=== PATIENT | female | born 1975 | race Caucasian/White ===

== ENCOUNTER 2016-09-24 20:08 | Emergency (ER) | payer OTHER ==
[~2016-09-24] VITALS: Ht 152.4 cm; Wt 59.0 kg
[~2016-09-24 20:08] MED LIST: HYDR-3326 PO; INSU100V28 SQ; INSU3INS6 SQ; PANT40TA2 PO
[2016-09-24] MEDS ORDERED: ONDANSETRON 4 MG/2 ML VIAL IV ONE (21:00)
[2016-09-24] MEDS ORDERED: MORPHINE SULFATE 2 MG/1 ML DISP.SYRIN IV ONE (21:00)
[2016-09-24] MEDS ORDERED: IV NORMAL SALINE 1000 ML BAG IV ONE ×2 (21:00→21:15)
[2016-09-24 21:09] LABS: *BILIRUBIN,URIN NEGATIVE (NEGATIVE); *BLOOD, URINE 2+ (NEGATIVE); *CLARITY,URINE CLEAR (CLEAR); *COLOR,URINE YELLOW (YELLOW); *KETONES,URINE NEGATIVE (NEGATIVE); *PROTEIN,URINE NEGATIVE (NEGATIVE); *UROBILINOGEN,URINE 0.2 E.U./dl (NORMAL); LEUKOCYTE ESTERASE ,URINE NEGATIVE (NEGATIVE); NITRITE, URINE NEGATIVE (NEGATIVE); PH,URINE 5.5 (5.0-8.0)
[2016-09-24 21:11] LABS: UGLUCOSE 2+ (NEGATIVE)
[2016-09-24 21:12] LABS: *URINE HCG, QUAL NEGATIVE (NEGATIVE)
[2016-09-24 21:18] LABS: BACTERIA,URINE FEW /HPF (NONE SEEN); SQUAMOUS EPITHELIAL CELL,UR FEW /HPF (NONE SEEN); WBC,URINE NONE SEEN /HPF (0-3)
[2016-09-24 21:52] LABS: BASOPHILS % (AUTO) 1.1 % (0.0-2.0); EOSINOPHILS % (AUTO) 1.1 % (0.0-7.0); HEMATOCRIT 42.8 % (37.0-47.0); HEMOGLOBIN 14.2 g/dL (12.0-16.0); LYMPHOCYTES # (AUTO) 1.5 K/uL (0.8-4.8); LYMPHOCYTES % (AUTO) 40.8 % (20.5-51.5); MEAN CORPUSCULAR HEMOGLOBIN 28.5 uug (27.0-31.0); MEAN CORPUSCULAR HGB CONC 33 g/dL (32.0-37.0); MEAN CORPUSCULAR VOLUME 85.9 fL (81.0-99.0); MONOCYTES # (AUTO) 0.1 K/uL (0.1-1.30); MONOCYTES % (AUTO) 4.1 % (0.0-11.0); NEUTROPHILS % (AUTO) 52.9 % (38.5-71.5); PLATELET COUNT (AUTO) 131 K/uL (150-450); RED BLOOD CELL COUNT(AUTO) 4.98 MIL/uL (4.20-5.40); WHITE BLOOD COUNT (AUTO) 3.6 K/uL (4.0-11.2)
[2016-09-24 21:55] LABS: CALCIUM 8.6 mg/dL (8.5-10.1); CREATININE 0.7 mg/dL (0.6-1.3); POTASSIUM 3.8 mmol/L (3.5-5.1)
[2016-09-24] MEDS ORDERED: MORPHINE SULFATE 2 MG/1 ML DISP.SYRIN ONE (21:59)
[2016-09-24] MEDS ORDERED: ONDANSETRON 4 MG/2 ML VIAL ONE (21:59)
[2016-09-24] MEDS ORDERED: diphenhydrAMINE 50 MG/1 ML VIAL IV ONE (22:00)
[2016-09-24 22:01] LABS: ALBUMIN 3.6 g/dL (3.4-5.0); BILIRUBIN,DIRECT 0.2 mg/dL (0.0-0.2); BILIRUBIN,TOTAL 0.5 mg/dL (0.2-1.0)
[2016-09-24] MEDS ORDERED: diphenhydrAMINE 50 MG/1 ML VIAL ONE (22:10)
[2016-09-24] MEDS ORDERED: INSULIN REGULAR, HUMAN 1,000 UNITS/10 ML VIAL SUBCUT ONE (22:15)
[2016-09-24 22:25] LABS: LYMPHOCYTES % (MANUAL) 38 % (20-40); MONOCYTES % (MANUAL) 5 % (2-10); NEUTROPHILS % (MANUAL) 56 % (42-75); REACTIVE LYMPHOCYTES 1 % (0-0)
[2016-09-24 22:26] LABS: ANISOCYTOSIS 1+; PLATELET ESTIMATE DECREASED
--- NOTE | 2016-09-24 22:39 | NUR ---
PATIENT WENT DOWN FOR CT SCAN.
[2016-09-24] MEDS ORDERED: INSULIN REGULAR, HUMAN 300 UNIT/3 ML VIAL ONE (22:50)
--- NOTE | 2016-09-24 22:58 | NUR ---
PATIENT IS BACK FORM CT SCAN
[2016-09-24] MEDS ORDERED: HYDROMORPHONE 1 MG/1 ML DISP.SYRIN IV ONE (23:30)
[2016-09-24] MEDS ORDERED: HYDROMORPHONE 1 MG/1 ML DISP.SYRIN ONE (23:49)
--- NOTE | 2016-09-25 00:25 | NUR ---
Blood sugar 233. is aware.
--- NOTE | 2016-09-25 00:48 | NUR ---
Patient discharged to home in stable conditon. Written and verbal after care instructions given. Patient verbalizes understanding of instructions.
[2016-09-25 00:52] VITALS: BP 115/75
== END 2016-09-25 00:48 | disposition home or self-care (01) ==
LOC: ER 20:08
DX: N23 Unspecified renal colic (principal); D25.9 Leiomyoma of uterus, unspecified; E10.65 Type 1 diabetes mellitus with hyperglycemia; D69.6 Thrombocytopenia, unspecified; R74.0 Nonspecific elevation of levels of transaminase and lactic acid dehydrogenase [LDH]; K21.9 Gastro-esophageal reflux disease without esophagitis; G43.909 Migraine, unspecified, not intractable, without status migrainosus; Z79.4 Long term (current) use of insulin; Z88.6 Allergy status to analgesic agent; Z88.8 Allergy status to other drugs, medicaments and biological substances
CPT/HCPCS: 36415; 76856; 83690; 84703; 85025; A4663; J1170; J1200; J1815; J2270; J2405; J7030

== ENCOUNTER 2016-11-15 21:56 | Emergency (ER) | payer OTHER ==
[~2016-11-15] VITALS: Ht 165.1 cm; Wt 59.0 kg
[~2016-11-15 21:56] MED LIST changes: -HYDR-3326 PO; -INSU100V28 SQ; -PANT40TA2 PO
[2016-11-15] MEDS ORDERED: FAMOTIDINE. 20 MG/2 ML VIAL IV ONE ×2 (22:15→22:31)
[2016-11-15] MEDS ORDERED: MORPHINE SULFATE 2 MG/1 ML DISP.SYRIN IV ONE (22:15)
[2016-11-15] MEDS ORDERED: ONDANSETRON 4 MG/2 ML VIAL IV ONE (22:15)
[2016-11-15] MEDS ORDERED: diphenhydrAMINE 50 MG/1 ML VIAL IV ONE (22:15)
[2016-11-15] MEDS ORDERED: IV NORMAL SALINE 1000 ML BAG IV ONE (22:15)
[2016-11-15] MEDS ORDERED: ONDANSETRON 4 MG/2 ML VIAL ONE (22:31)
[2016-11-15] MEDS ORDERED: MORPHINE SULFATE 2 MG/1 ML DISP.SYRIN ONE (22:31)
[2016-11-15] MEDS ORDERED: diphenhydrAMINE 50 MG/1 ML VIAL ONE (22:31)
[2016-11-15 22:33] LABS: *BILIRUBIN,URIN NEGATIVE (NEGATIVE); *BLOOD, URINE NEGATIVE (NEGATIVE); *CLARITY,URINE CLEAR (CLEAR); *COLOR,URINE YELLOW (YELLOW); *KETONES,URINE NEGATIVE (NEGATIVE); *PROTEIN,URINE NEGATIVE (NEGATIVE); *UROBILINOGEN,URINE 0.2 E.U./dl (NORMAL); LEUKOCYTE ESTERASE ,URINE NEGATIVE (NEGATIVE); NITRITE, URINE NEGATIVE (NEGATIVE)
[2016-11-15 22:36] LABS: BASOPHILS % (AUTO) 0.4 % (0.0-2.0); EOSINOPHILS % (AUTO) 1.2 % (0.0-7.0); HEMATOCRIT 42.5 % (37-47); LYMPHOCYTES # (AUTO) 1.4 K/UL (0.8-4.8); LYMPHOCYTES % (AUTO) 39.9 % (20.5-51.5); MEAN CORPUSCULAR HEMOGLOBIN 28.6 UUG (27.0-31.0); MEAN CORPUSCULAR HGB CONC 33 g/dL (32.0-37.0); MEAN CORPUSCULAR VOLUME 86.8 FL (81.0-99.0); MONOCYTES # (AUTO) 0.2 K/UL (0.1-1.30); MONOCYTES % (AUTO) 4.7 % (0.0-11.0); NEUTROPHILS # (AUTO) 1.9 K/UL (1.8-8.9); NEUTROPHILS % (AUTO) 53.8 % (38.5-71.5); PLATELET COUNT (AUTO) 144 K/UL (150-450); RED CELL DISTRIBUTION WIDTH 12.2 % (11.5-14.5); WHITE BLOOD COUNT (AUTO) 3.5 K/UL (4.0-11.2)
[2016-11-15 22:39] LABS: *URINE HCG, QUAL NEGATIVE (NEGATIVE)
[2016-11-15 22:39] LABS: CALCIUM 8.7 mg/dL (8.5-10.1); CREATININE 0.7 mg/dL (0.6-1.3)
[2016-11-15 22:43] LABS: UGLUCOSE 2+ (NEGATIVE)
[2016-11-15 22:47] LABS: SQUAMOUS EPITHELIAL CELL,UR FEW /HPF (NONE SEEN); WBC,URINE 0-3 /HPF (0-3)
[2016-11-15 22:54] LABS: BILIRUBIN,DIRECT 0.1 mg/dL (0.0-0.2); BILIRUBIN,TOTAL 0.4 mg/dL (0.1-1.0)
[2016-11-15 22:55] LABS: ALBUMIN 3.5 g/dL (3.4-5.0); TOTAL PROTEIN, SERUM 7.1 g/dL (6.4-8.2)
[2016-11-15] MEDS ORDERED: INSULIN REGULAR, HUMAN 1,000 UNITS/10 ML VIAL IV ONE (23:15)
[2016-11-15] MEDS ORDERED: INSULIN REGULAR, HUMAN 300 UNIT/3 ML VIAL ONE (23:21)
--- NOTE | 2016-11-15 23:30 | NUR ---
Pt to CT, NAD noted.
[2016-11-16] MEDS ORDERED: MORPHINE SULFATE 2 MG/1 ML DISP.SYRIN IV ONE (01:30)
--- NOTE | 2016-11-16 01:30 | NUR ---
Best mas in ED - 11/16/16 at 0218 by KAPIL I+O cath placed with no urine draine noted, pt voided sucessfully x 2 in restroom prior to f/c insertion. Dr Clay notified.
--- NOTE | 2016-11-16 01:30 | NUR ---
I+O cath placed with no urine output noted, pt voided sucessfully x 2 in restroom prior to insertion. Dr Clay notified.
[2016-11-16] MEDS ORDERED: MORPHINE SULFATE 2 MG/1 ML DISP.SYRIN ONE (01:33)
--- NOTE | 2016-11-16 01:53 | NUR ---
Radiology notified for US.
--- NOTE | 2016-11-16 02:10 | NUR ---
Pt resting in gurney with eyes closed and no s/s of acute distress noted, u/s pending.
--- NOTE | 2016-11-16 02:40 | NUR ---
U/S in progress at bedside.
--- NOTE | 2016-11-16 03:43 | NUR ---
IV removed. Catheter intact and site benign. Pressure and 4x4 gauze applied to site. No bleeding noted.
--- NOTE | 2016-11-16 03:44 | NUR ---
Patient discharged to home in stable conditon with family. Written and verbal after care instructions given. Patient verbalizes understanding of instructions. Stressed follow up with pmd or return to ER for worsening s/s.
== END 2016-11-16 03:45 | disposition home or self-care (01) ==
LOC: ER 21:59
DX: R10.9 Unspecified abdominal pain (principal); K21.9 Gastro-esophageal reflux disease without esophagitis; G43.909 Migraine, unspecified, not intractable, without status migrainosus; Z88.6 Allergy status to analgesic agent; Z88.8 Allergy status to other drugs, medicaments and biological substances
CPT/HCPCS: 36415; 51702; 74176; 76856; 80048; 80076; 81001; 82962; 84703; 85025; 96361; 96374; 96375; 96376; 99285; A4663; J1200; J1815; J2270 ×2; J2405; J3490; J7030

== ENCOUNTER 2016-11-22 22:01 | Emergency (ER) | payer OTHER ==
[~2016-11-22] VITALS: Ht 157.5 cm; Wt 61.2 kg
--- NOTE | 2016-11-22 22:28 | NUR ---
PT SEEN HERE LAST WEEK FOR THE SAME THING.PT STATES PAIN IS WORSE NOW.HAS APPT THIS COMING WEEK WITH DR. BARTLETT C/O FLANK PAIN. NO RESP DISTRESS NOTED OR REPORTED UPON ASSESSMENT... MD AT BEDSIDE...
[2016-11-22] MEDS ORDERED: ONDANSETRON 4 MG/2 ML VIAL IV ONE (23:00)
[2016-11-22] MEDS ORDERED: HYDROMORPHONE 1 MG/1 ML DISP.SYRIN IV ONE (23:00)
--- NOTE | 2016-11-22 23:03 | NUR ---
Urine Specimen collected, sent to Laboratory.
[2016-11-22 23:05] LABS: BASOPHILS % (AUTO) 0.5 % (0.0-2.0); EOSINOPHILS % (AUTO) 1.4 % (0.0-7.0); HEMATOCRIT 40.6 % (37-47); HEMOGLOBIN 13.7 G/DL (12.0-16.0); LYMPHOCYTES # (AUTO) 1.4 K/UL (0.8-4.8); LYMPHOCYTES % (AUTO) 42.6 % (20.5-51.5); MEAN CORPUSCULAR HEMOGLOBIN 28.9 UUG (27.0-31.0); MEAN CORPUSCULAR HGB CONC 34 g/dL (32.0-37.0); MEAN CORPUSCULAR VOLUME 85.8 FL (81.0-99.0); MONOCYTES # (AUTO) 0.2 K/UL (0.1-1.30); MONOCYTES % (AUTO) 5.2 % (0.0-11.0); NEUTROPHILS # (AUTO) 1.7 K/UL (1.8-8.9); NEUTROPHILS % (AUTO) 50.3 % (38.5-71.5); PLATELET COUNT (AUTO) 134 K/UL (150-450); RED BLOOD CELL COUNT(AUTO) 4.73 MIL/UL (4.2-5.4); WHITE BLOOD COUNT (AUTO) 3.3 K/UL (4.0-11.2)
[2016-11-22 23:06] LABS: *BILIRUBIN,URIN NEGATIVE (NEGATIVE); *BLOOD, URINE 2+ (NEGATIVE); *COLOR,URINE YELLOW (YELLOW); *KETONES,URINE NEGATIVE (NEGATIVE); *PROTEIN,URINE NEGATIVE (NEGATIVE); *UROBILINOGEN,URINE 0.2 E.U./dl (NORMAL); LEUKOCYTE ESTERASE ,URINE NEGATIVE (NEGATIVE); NITRITE, URINE NEGATIVE (NEGATIVE)
[2016-11-22 23:08] LABS: *URINE HCG, QUAL NEGATIVE (NEGATIVE)
[2016-11-22] MEDS ORDERED: ONDANSETRON 4 MG/2 ML VIAL ONE (23:13)
[2016-11-22] MEDS ORDERED: HYDROMORPHONE 1 MG/1 ML DISP.SYRIN ONE (23:13)
[2016-11-22 23:15] LABS: *CLARITY,URINE HAZY (CLEAR); UGLUCOSE 2+ (NEGATIVE)
[2016-11-22] MEDS ORDERED: diphenhydrAMINE 50 MG/1 ML VIAL IV ONE (23:15)
[2016-11-22 23:21] LABS: BACTERIA,URINE FEW /HPF (NONE SEEN); SQUAMOUS EPITHELIAL CELL,UR MODERATE /HPF (NONE SEEN)
[2016-11-22 23:24] LABS: BILIRUBIN,DIRECT 0.1 mg/dL (0.0-0.2); BILIRUBIN,TOTAL 0.3 mg/dL (0.2-1.0); CREATININE 0.7 mg/dL (0.6-1.3); POTASSIUM 3.9 mmol/L (3.5-5.1); TOTAL PROTEIN, SERUM 7.3 g/dL (6.4-8.2)
[2016-11-22] MEDS ORDERED: diphenhydrAMINE 50 MG/1 ML VIAL ONE (23:24)
[2016-11-22] MEDS ORDERED: INSULIN REGULAR, HUMAN 1,000 UNITS/10 ML VIAL IV ONE (23:30)
[2016-11-22] MEDS ORDERED: IV NORMAL SALINE 1000 ML BAG IV ONE (23:30)
[2016-11-22] MEDS ORDERED: INSULIN REGULAR, HUMAN 300 UNIT/3 ML VIAL ONE (23:42)
--- NOTE | 2016-11-23 01:20 | NUR ---
Patient discharged to home in stable conditon. Written and verbal after care instructions given. Patient verbalizes understanding of instructions. pt walked out of ER unassisted with belongings and at side...
[2016-11-23 01:21] VITALS: BP 129/93
== END 2016-11-23 01:59 | disposition home or self-care (01) ==
LOC: ER 22:04
DX: D25.9 Leiomyoma of uterus, unspecified (principal); R10.2 Pelvic and perineal pain; R74.0 Nonspecific elevation of levels of transaminase and lactic acid dehydrogenase [LDH]; E10.65 Type 1 diabetes mellitus with hyperglycemia; G43.909 Migraine, unspecified, not intractable, without status migrainosus; K21.9 Gastro-esophageal reflux disease without esophagitis; Z79.4 Long term (current) use of insulin; Z88.6 Allergy status to analgesic agent; Z88.8 Allergy status to other drugs, medicaments and biological substances
CPT/HCPCS: 36415; 76856; 83690; 84703; 85025; 85730; A4663; J1170; J1200; J1815; J2405

== ENCOUNTER 2017-03-29 21:26 | Emergency (ER) | payer OTHER ==
[~2017-03-29] VITALS: Ht 152.4 cm; Wt 63.5 kg
--- NOTE | 2017-03-29 22:05 | NUR ---
CHECKED BS 534
[2017-03-29 22:31] LABS: *BILIRUBIN,URIN NEGATIVE (NEGATIVE); *BLOOD, URINE 2+ (NEGATIVE); *CLARITY,URINE CLEAR (CLEAR); *COLOR,URINE YELLOW (YELLOW); *KETONES,URINE NEGATIVE (NEGATIVE); *PROTEIN,URINE NEGATIVE (NEGATIVE); *UROBILINOGEN,URINE 0.2 E.U./dl (NORMAL); LEUKOCYTE ESTERASE ,URINE NEGATIVE (NEGATIVE); NITRITE, URINE NEGATIVE (NEGATIVE); UGLUCOSE 2+ (NEGATIVE)
[2017-03-29 22:37] LABS: BACTERIA,URINE NONE SEEN /HPF (NONE SEEN); SQUAMOUS EPITHELIAL CELL,UR FEW /HPF (NONE SEEN); WBC,URINE 0-3 /HPF (0-3)
[2017-03-29 22:46] LABS: BASOPHILS % (AUTO) 0.6 % (0.0-2.0); EOSINOPHILS % (AUTO) 1.1 % (0.0-7.0); HEMATOCRIT 47.9 % (37-47); HEMOGLOBIN 15.8 G/DL (12.0-16.0); LYMPHOCYTES # (AUTO) 1.8 K/UL (0.8-4.8); LYMPHOCYTES % (AUTO) 42.1 % (20.5-51.5); MEAN CORPUSCULAR HEMOGLOBIN 28.8 UUG (27.0-31.0); MEAN CORPUSCULAR HGB CONC 33 g/dL (32.0-37.0); MEAN CORPUSCULAR VOLUME 86.9 FL (81.0-99.0); MONOCYTES # (AUTO) 0.1 K/UL (0.1-1.30); MONOCYTES % (AUTO) 3.4 % (0.0-11.0); NEUTROPHILS # (AUTO) 2.4 K/UL (1.8-8.9); NEUTROPHILS % (AUTO) 52.8 % (38.5-71.5); PLATELET COUNT (AUTO) 133 K/UL (150-450); RED BLOOD CELL COUNT(AUTO) 5.51 MIL/UL (4.2-5.4); WHITE BLOOD COUNT (AUTO) 4.3 K/UL (4.0-11.2)
[2017-03-29 23:14] LABS: BILIRUBIN,DIRECT 0.2 mg/dL (0.0-0.2); BILIRUBIN,TOTAL 0.7 mg/dL (0.2-1.0); CREATININE 0.8 mg/dL (0.6-1.3); TOTAL PROTEIN, SERUM 7.9 g/dL (6.4-8.2)
--- NOTE | 2017-03-30 01:07 | NUR ---
Patient discharged to home in stable conditon. Written and verbal after care instructions given. Patient verbalizes understanding of instructions.
[2017-03-30 01:12] VITALS: BP 112/83
== END 2017-03-30 01:13 | disposition home or self-care (01) ==
LOC: ER 21:31
DX: E11.65 Type 2 diabetes mellitus with hyperglycemia (principal); R19.7 Diarrhea, unspecified; R74.0 Nonspecific elevation of levels of transaminase and lactic acid dehydrogenase [LDH]; R51 Headache; K21.9 Gastro-esophageal reflux disease without esophagitis; Z79.4 Long term (current) use of insulin; Z87.442 Personal history of urinary calculi
CPT/HCPCS: 36415; 76700; 83690; 84703; 85025; 93005; A4663; J1170; J1200; J1815; J2405; J7030

== ENCOUNTER 2017-10-23 13:00 | Inpatient (IN) | payer OTHER ==
[~2017-10-23] VITALS: Ht 152.4 cm; Wt 56.7 kg
[2017-10-23] MEDS ORDERED: INSU100C SQ (13:07)
[2017-10-23] MEDS ORDERED: ONDANSETRON 4 MG/2 ML VIAL IV ONE (13:15)
[2017-10-23] MEDS ORDERED: IV NORMAL SALINE 1000 ML BAG IV ONE (13:15)
[2017-10-23] MEDS ORDERED: ONDANSETRON 4 MG/2 ML VIAL ONE (13:16)
[2017-10-23 13:52] LABS: BASOPHILS % (AUTO) 0.6 % (0.0-2.0); EOSINOPHILS % (AUTO) 0.5 % (0.0-7.0); HEMATOCRIT 44.7 % (31.2-41.9); HEMOGLOBIN 15.6 g/dL (10.9-14.3); LYMPHOCYTES # (AUTO) 1.4 K/uL (20.0-40.0); LYMPHOCYTES % (AUTO) 26.1 % (20.5-51.5); MEAN CORPUSCULAR HEMOGLOBIN 30.4 uug (24.7-32.8); MEAN CORPUSCULAR HGB CONC 35 g/dL (32.3-35.6); MEAN CORPUSCULAR VOLUME 87.1 fL (75.5-95.3); MONOCYTES # (AUTO) 0.1 K/uL (2.0-10.0); MONOCYTES % (AUTO) 2.7 % (0.0-11.0); NEUTROPHILS # (AUTO) 3.7 K/uL (1.8-8.9); NEUTROPHILS % (AUTO) 70.1 % (38.5-71.5); PLATELET COUNT (AUTO) 145 K/uL (179-408); RED BLOOD CELL COUNT(AUTO) 5.13 MIL/uL (3.63-4.92); WHITE BLOOD COUNT (AUTO) 5.2 K/uL (3.8-11.8)
[2017-10-23 13:53] LABS: *URINE HCG, QUAL NEGATIVE (NEGATIVE)
[2017-10-23 13:59] LABS: CREATININE 0.9 mg/dL (0.6-1.3); POTASSIUM 4.7 mmol/L (3.5-5.1)
[2017-10-23] MEDS ORDERED: MORPHINE SULFATE 2 MG/1 ML DISP.SYRIN IV ONE (14:00)
[2017-10-23] MEDS ORDERED: MORPHINE SULFATE 4 MG/1 ML DISP.SYRIN ONE (14:11)
[2017-10-23] MEDS ORDERED: INSULIN REGULAR, HUMAN 1,000 UNITS/10 ML VIAL SUBCUT ONE (14:45)
[2017-10-23] MEDS ORDERED: INSULIN REGULAR, HUMAN 300 UNIT/3 ML VIAL ONE (15:08)
[2017-10-23 17:40] VITALS: BP 126/86
[2017-10-23] MEDS ORDERED: ONDANSETRON 4 MG/2 ML VIAL IV PRN (19:00)
[2017-10-23] MEDS ORDERED: HYDROMORPHONE 1 MG/1 ML DISP.SYRIN IV PRN (19:00)
[2017-10-23] MEDS ORDERED: DEXTROSE 50% 50 ML DISP.SYRIN IV PRN (19:00)
[2017-10-23] MEDS: HYDROMORPHONE 2 MG/1 ML DISP.SYRIN IV PRN (19:43)
[2017-10-23] MEDS ORDERED: diphenhydrAMINE 50 MG/1 ML VIAL IV ONE (19:45)
[2017-10-23] MEDS: IV NS 1000 ML 1,000 ML IV PRN (20:18)
[2017-10-23] MEDS: BLOOD SUGAR DIAGNOSTIC 1 EACH STRIP VI SCH ×2 (20:26→23:09)
[2017-10-23] MEDS: INSULIN GLARGINE,HUM 300 UNITS/3 ML CARTRIDGE SQ SCH (20:29)
[2017-10-23] MEDS: ENOXAPARIN SODIUM 40 MG/0.4 ML DISP.SYRIN SQ SCH (20:30)
[2017-10-23] MEDS: INSULIN REGULAR, HUMAN 300 UNIT/3 ML VIAL SQ PRN (20:30)
[2017-10-23 20:41] VITALS: BP 117/82
[2017-10-23] MEDS: ZOLPIDEM 5 MG TABLET PO PRN (23:07)
[2017-10-24] MEDS: HYDROMORPHONE 2 MG/1 ML DISP.SYRIN IV PRN ×5 (04:12→22:32)
[2017-10-24] MEDS: IV NS 1000 ML 1,000 ML IV PRN ×2 (04:14→18:39)
[2017-10-24] MEDS: BLOOD SUGAR DIAGNOSTIC 1 EACH STRIP VI SCH ×6 (04:17→23:58)
[2017-10-24] MEDS: INSULIN REGULAR, HUMAN 300 UNIT/3 ML VIAL SQ PRN ×5 (04:18→23:59)
[2017-10-24 05:18] LABS: *BILIRUBIN,URIN NEGATIVE (NEGATIVE); *BLOOD, URINE NEGATIVE (NEGATIVE); *CLARITY,URINE SLIGHTLY CLOUDY (CLEAR); *COLOR,URINE YELLOW (YELLOW); *KETONES,URINE NEGATIVE (NEGATIVE); *PROTEIN,URINE NEGATIVE (NEGATIVE); LEUKOCYTE ESTERASE ,URINE 1+ (NEGATIVE); NITRITE, URINE NEGATIVE (NEGATIVE); PH,URINE 6.5 (5.0-8.0)
[2017-10-24 05:20] LABS: UGLUCOSE 1+ (NEGATIVE)
[2017-10-24 05:26] VITALS: BP 145/91
[2017-10-24 05:31] LABS: WBC,URINE 20-50 /HPF (0-3)
[2017-10-24 05:32] LABS: BACTERIA,URINE NONE SEEN /HPF (NONE SEEN); SQUAMOUS EPITHELIAL CELL,UR FEW /HPF (NONE SEEN)
[2017-10-24 06:11] LABS: BASOPHILS % (AUTO) 0.4 % (0.0-2.0); EOSINOPHILS % (AUTO) 1.3 % (0.0-7.0); HEMATOCRIT 39.5 % (31.2-41.9); HEMOGLOBIN 13.6 g/dL (10.9-14.3); LYMPHOCYTES # (AUTO) 1.7 K/uL (20.0-40.0); LYMPHOCYTES % (AUTO) 49.8 % (20.5-51.5); MEAN CORPUSCULAR HEMOGLOBIN 30.4 uug (24.7-32.8); MEAN CORPUSCULAR HGB CONC 35 g/dL (32.3-35.6); MONOCYTES # (AUTO) 0.1 K/uL (2.0-10.0); MONOCYTES % (AUTO) 4.3 % (0.0-11.0); NEUTROPHILS # (AUTO) 1.5 K/uL (1.8-8.9); NEUTROPHILS % (AUTO) 44.2 % (38.5-71.5); PLATELET COUNT (AUTO) 131 K/uL (179-408); RED BLOOD CELL COUNT(AUTO) 4.49 MIL/uL (3.63-4.92); WHITE BLOOD COUNT (AUTO) 3.4 K/uL (3.8-11.8)
[2017-10-24 06:27] LABS: BILIRUBIN,TOTAL 0.5 mg/dL (0.2-1.0); CREATININE 0.7 mg/dL (0.6-1.3); MAGNESIUM 1.6 mg/dL (1.8-2.4); POTASSIUM 3.8 mmol/L (3.5-5.1); TOTAL PROTEIN, SERUM 6.2 g/dL (6.4-8.2)
[2017-10-24 06:36] LABS: THYROID STIMULATING HORMONE 3.803 mIU/mL (0.358-3.740)
[2017-10-24] MEDS: diphenhydrAMINE 50 MG/1 ML VIAL IV PRN ×4 (07:54→22:31)
[2017-10-24 11:40] VITALS: BP 114/78
[2017-10-24] MEDS: MAGNESIUM SULFATE/D5W 100 ML IV SCH ×2 (12:25→14:22)
[2017-10-24 15:44] VITALS: BP 158/101
[2017-10-24] MEDS: ACETAMINOPHEN 325 MG TABLET PO PRN (17:10)
[2017-10-24 20:00] VITALS: BP 121/85
[2017-10-24] MEDS: INSULIN GLARGINE,HUM 300 UNITS/3 ML CARTRIDGE SQ SCH (20:22)
[2017-10-24] MEDS: ENOXAPARIN SODIUM 40 MG/0.4 ML DISP.SYRIN SQ SCH (20:23)
[2017-10-24] MEDS: ZOLPIDEM 5 MG TABLET PO PRN (23:38)
[2017-10-25] MEDS: IV NS 1000 ML 1,000 ML IV PRN (02:41)
[2017-10-25] MEDS: diphenhydrAMINE 50 MG/1 ML VIAL IV PRN ×3 (02:48→11:27)
[2017-10-25] MEDS: HYDROMORPHONE 2 MG/1 ML DISP.SYRIN IV PRN ×2 (02:48→06:38)
[2017-10-25] MEDS: BLOOD SUGAR DIAGNOSTIC 1 EACH STRIP VI SCH ×3 (04:27→12:17)
[2017-10-25] MEDS: INSULIN REGULAR, HUMAN 300 UNIT/3 ML VIAL SQ PRN ×2 (04:28→08:07)
[2017-10-25 04:52] VITALS: BP 141/96
[2017-10-25] MEDS: ACETAMINOPHEN 325 MG TABLET PO PRN (06:07)
[2017-10-25 06:31] LABS: CREATININE 0.8 mg/dL (0.6-1.3); MAGNESIUM 1.7 mg/dL (1.8-2.4)
[2017-10-25 07:23] LABS: BASOPHILS % (AUTO) 0.6 % (0.0-2.0); EOSINOPHILS # (AUTO) 0.1 K/uL (0.0-0.7); EOSINOPHILS % (AUTO) 1.8 % (0.0-7.0); HEMATOCRIT 38.7 % (31.2-41.9); HEMOGLOBIN 13.5 g/dL (10.9-14.3); LYMPHOCYTES # (AUTO) 1.3 K/uL (20.0-40.0); LYMPHOCYTES % (AUTO) 44.1 % (20.5-51.5); MEAN CORPUSCULAR HEMOGLOBIN 30.6 uug (24.7-32.8); MEAN CORPUSCULAR HGB CONC 35 g/dL (32.3-35.6); MEAN CORPUSCULAR VOLUME 87.6 fL (75.5-95.3); MONOCYTES # (AUTO) 0.1 K/uL (2.0-10.0); MONOCYTES % (AUTO) 4.2 % (0.0-11.0); NEUTROPHILS # (AUTO) 1.4 K/uL (1.8-8.9); NEUTROPHILS % (AUTO) 49.3 % (38.5-71.5); PLATELET COUNT (AUTO) 135 K/uL (179-408); RED BLOOD CELL COUNT(AUTO) 4.41 MIL/uL (3.63-4.92); WHITE BLOOD COUNT (AUTO) 2.9 K/uL (3.8-11.8)
[2017-10-25 08:38] LABS: BAND % (MANUAL) 1 % (0-10); EOSINOPHILS % (MANUAL) 2 % (0-8); LYMPHOCYTES % (MANUAL) 51 % (20-40); MONOCYTES % (MANUAL) 4 % (2-10); NEUTROPHILS % (MANUAL) 42 % (42-75)
[2017-10-25] MEDS ORDERED: HYDROMORPHONE 2 MG/1 ML DISP.SYRIN IV ONE (11:00)
[2017-10-25 11:40] VITALS: BP 139/87
== END 2017-10-25 12:37 | disposition home or self-care (01) | DRG 420 ==
LOC: ER 13:00 → MED 17:15
PROVIDERS: ADMIT Nurse Practitioner Acute Care; ATTEND Nurse Practitioner Acute Care
DX: E10.65 Type 1 diabetes mellitus with hyperglycemia (principal); E10.42 Type 1 diabetes mellitus with diabetic polyneuropathy; E83.42 Hypomagnesemia; Z79.4 Long term (current) use of insulin; K29.70 Gastritis, unspecified, without bleeding; K21.9 Gastro-esophageal reflux disease without esophagitis; G43.909 Migraine, unspecified, not intractable, without status migrainosus; E86.1 Hypovolemia; N20.0 Calculus of kidney; Z83.3 Family history of diabetes mellitus; Z80.49 Family history of malignant neoplasm of other genital organs; Z91.14 Patient's other noncompliance with medication regimen; Z87.442 Personal history of urinary calculi
CPT/HCPCS: 36415; 70450; 83735; 84100; 84443; 84703; 85025; 85730; 87077; 87086; A4663; J1170; J1200; J1650; J1815; J2270; J2405; J3475; J7030

== ENCOUNTER 2017-12-19 14:07 | Emergency (ER) | payer OTHER ==
[~2017-12-19] VITALS: Ht 157.5 cm; Wt 56.7 kg
[~2017-12-19 14:07] MED LIST changes: +INSU100C SQ
[2017-12-19] MEDS ORDERED: ONDANSETRON 4 MG/2 ML VIAL IM ONE (14:30)
[2017-12-19] MEDS ORDERED: HYDROMORPHONE 1 MG/1 ML DISP.SYRIN IM ONE (14:30)
[2017-12-19] MEDS ORDERED: HYDROMORPHONE 2 MG/1 ML DISP.SYRIN ONE ×2 (14:37→15:35)
[2017-12-19] MEDS ORDERED: ONDANSETRON 4 MG/2 ML VIAL ONE ×2 (14:37→15:36)
[2017-12-19 14:54] LABS: *BILIRUBIN,URIN NEGATIVE (NEGATIVE); *BLOOD, URINE NEGATIVE (NEGATIVE); *COLOR,URINE YELLOW (YELLOW); *KETONES,URINE NEGATIVE (NEGATIVE); *PROTEIN,URINE NEGATIVE (NEGATIVE); *UROBILINOGEN,URINE 0.2 E.U./dl (NORMAL); LEUKOCYTE ESTERASE ,URINE NEGATIVE (NEGATIVE); NITRITE, URINE NEGATIVE (NEGATIVE)
[2017-12-19 14:55] LABS: *URINE HCG, QUAL NEGATIVE (NEGATIVE)
[2017-12-19] MEDS ORDERED: diphenhydrAMINE 50 MG/1 ML VIAL IM ONE (15:00)
[2017-12-19] MEDS ORDERED: diphenhydrAMINE 50 MG/1 ML VIAL ONE (15:03)
[2017-12-19 15:05] LABS: *CLARITY,URINE SLIGHTLY HAZY (CLEAR); UGLUCOSE 1+ (NEGATIVE)
[2017-12-19 15:07] LABS: BACTERIA,URINE FEW /HPF (NONE SEEN); SQUAMOUS EPITHELIAL CELL,UR MODERATE /HPF (NONE SEEN); WBC,URINE 0-3 /HPF (0-3)
[2017-12-19] MEDS ORDERED: ONDANSETRON 4 MG/2 ML VIAL IV ONE (15:30)
[2017-12-19] MEDS ORDERED: HYDROMORPHONE 1 MG/1 ML DISP.SYRIN IV ONE (15:30)
[2017-12-19] MEDS ORDERED: IV NORMAL SALINE 1000 ML BAG IV ONE (15:30)
[2017-12-19 15:47] LABS: BASOPHILS % (AUTO) 0.9 % (0.0-2.0); EOSINOPHILS % (AUTO) 0.6 % (0.0-7.0); HEMATOCRIT 42.1 % (31.2-41.9); HEMOGLOBIN 14.7 g/dL (10.9-14.3); LYMPHOCYTES # (AUTO) 1.7 K/uL (20.0-40.0); LYMPHOCYTES % (AUTO) 39.9 % (20.5-51.5); MEAN CORPUSCULAR HEMOGLOBIN 30.8 uug (24.7-32.8); MEAN CORPUSCULAR HGB CONC 35 g/dL (32.3-35.6); MONOCYTES # (AUTO) 0.2 K/uL (2.0-10.0); MONOCYTES % (AUTO) 4.4 % (0.0-11.0); NEUTROPHILS # (AUTO) 2.3 K/uL (1.8-8.9); NEUTROPHILS % (AUTO) 54.2 % (38.5-71.5); PLATELET COUNT (AUTO) 173 K/uL (179-408); RED BLOOD CELL COUNT(AUTO) 4.78 MIL/uL (3.63-4.92); WHITE BLOOD COUNT (AUTO) 4.2 K/uL (3.8-11.8)
[2017-12-19 15:54] LABS: CREATININE 0.6 mg/dL (0.6-1.3); POTASSIUM 4.1 mmol/L (3.5-5.1)
[2017-12-19 16:01] LABS: BILIRUBIN,DIRECT 0.2 mg/dL (0.0-0.2); BILIRUBIN,TOTAL 0.5 mg/dL (0.2-1.0); TOTAL PROTEIN, SERUM 7.2 g/dL (6.4-8.2)
--- NOTE | 2017-12-19 16:43 | NUR ---
DCD instructions and prescription provided to patient. pt. left room ambulatory. No c/of pain.
== END 2017-12-19 16:47 | disposition home or self-care (01) ==
LOC: ER 14:07
DX: D25.9 Leiomyoma of uterus, unspecified (principal); K21.9 Gastro-esophageal reflux disease without esophagitis; E11.9 Type 2 diabetes mellitus without complications; Z88.6 Allergy status to analgesic agent; Z88.8 Allergy status to other drugs, medicaments and biological substances; Z91.041 Radiographic dye allergy status; Z79.4 Long term (current) use of insulin
CPT/HCPCS: 36415; 74176; 80048; 80076; 81001; 83690; 84703; 85025; 96361; 96372 ×3; 96374; 96375; 99285; A4663; J1170 ×2; J1200; J2405 ×2; J7030

== ENCOUNTER 2018-01-16 21:34 | Emergency (ER) | payer OTHER ==
[~2018-01-16] VITALS: Ht 152.4 cm; Wt 54.4 kg
[2018-01-16] MEDS ORDERED: HYDROMORPHONE 1 MG/1 ML DISP.SYRIN IM ONE (22:15)
[2018-01-16] MEDS ORDERED: ONDANSETRON 4 MG/2 ML VIAL IM ONE (22:15)
[2018-01-16] MEDS ORDERED: HYDROMORPHONE 2 MG/1 ML DISP.SYRIN ONE (22:24)
[2018-01-16] MEDS ORDERED: ONDANSETRON 4 MG/2 ML VIAL ONE (22:24)
[2018-01-16 22:25] LABS: *BILIRUBIN,URIN NEGATIVE (NEGATIVE); *BLOOD, URINE Trace-intact (NEGATIVE); *COLOR,URINE YELLOW (YELLOW); *KETONES,URINE NEGATIVE (NEGATIVE); *PROTEIN,URINE NEGATIVE (NEGATIVE); *UROBILINOGEN,URINE 0.2 E.U./dl (NORMAL); LEUKOCYTE ESTERASE ,URINE NEGATIVE (NEGATIVE); NITRITE, URINE NEGATIVE (NEGATIVE); UGLUCOSE 2+ (NEGATIVE)
[2018-01-16 22:27] LABS: *CLARITY,URINE SLIGHTLY HAZY (CLEAR)
[2018-01-16 22:31] LABS: *URINE HCG, QUAL NEGATIVE (NEGATIVE); BACTERIA,URINE FEW /HPF (NONE SEEN); RBC,URINE 0-3 /HPF (0-3); SQUAMOUS EPITHELIAL CELL,UR MODERATE /HPF (NONE SEEN); YEAST,URINE FEW /HPF (NONE SEEN)
[2018-01-16] MEDS ORDERED: diphenhydrAMINE 50 MG/1 ML VIAL IM ONE (22:45)
[2018-01-16] MEDS ORDERED: diphenhydrAMINE 50 MG/1 ML VIAL ONE (22:48)
--- NOTE | 2018-01-17 00:36 | NUR ---
Patient discharged to home in stable conditon. Written and verbal after care instructions given. Patient verbalizes understanding of instructions. Pt ambulated out of ER in steady gait. NAD noted. All belongings with pt. VSS. Pt says she will take Uber to get home.
[2018-01-17 00:37] VITALS: BP 139/92
== END 2018-01-17 00:37 | disposition home or self-care (01) ==
LOC: ER 21:38
DX: N39.0 Urinary tract infection, site not specified (principal); D25.9 Leiomyoma of uterus, unspecified; Z88.6 Allergy status to analgesic agent; Z91.041 Radiographic dye allergy status; Z88.8 Allergy status to other drugs, medicaments and biological substances; Z79.4 Long term (current) use of insulin
CPT/HCPCS: 84703; A4663; J1170; J1200; J2405; J7030

== ENCOUNTER 2018-01-28 21:10 | Emergency (ER) | payer OTHER ==
[~2018-01-28] VITALS: Ht 152.4 cm; Wt 54.4 kg
--- NOTE | 2018-01-28 21:24 | NUR ---
DR MANUEL DODSON MD AT BEDSIDE FOR MSE.
[2018-01-28 22:04] LABS: BASOPHILS % (AUTO) 0.9 % (0.0-2.0); EOSINOPHILS % (AUTO) 0.7 % (0.0-7.0); HEMATOCRIT 42.1 % (31.2-41.9); HEMOGLOBIN 14.7 g/dL (10.9-14.3); LYMPHOCYTES # (AUTO) 1.5 K/uL (20.0-40.0); LYMPHOCYTES % (AUTO) 37.2 % (20.5-51.5); MEAN CORPUSCULAR HEMOGLOBIN 31.8 uug (24.7-32.8); MEAN CORPUSCULAR HGB CONC 35 g/dL (32.3-35.6); MEAN CORPUSCULAR VOLUME 91.2 fL (75.5-95.3); MONOCYTES # (AUTO) 0.2 K/uL (2.0-10.0); MONOCYTES % (AUTO) 4.2 % (0.0-11.0); NEUTROPHILS # (AUTO) 2.3 K/uL (1.8-8.9); PLATELET COUNT (AUTO) 155 K/uL (179-408); RED BLOOD CELL COUNT(AUTO) 4.61 MIL/uL (3.63-4.92)
--- NOTE | 2018-01-28 22:12 | NUR ---
LAB AT BEDSIDE FOR BLOOD DRAW.
[2018-01-28 22:16] LABS: *BILIRUBIN,URIN NEGATIVE (NEGATIVE); *BLOOD, URINE NEGATIVE (NEGATIVE); *CLARITY,URINE CLEAR (CLEAR); *COLOR,URINE YELLOW (YELLOW); *KETONES,URINE NEGATIVE (NEGATIVE); *PROTEIN,URINE NEGATIVE (NEGATIVE); *UROBILINOGEN,URINE 0.2 E.U./dl (NORMAL); LEUKOCYTE ESTERASE ,URINE NEGATIVE (NEGATIVE); NITRITE, URINE NEGATIVE (NEGATIVE)
[2018-01-28 22:17] LABS: UGLUCOSE 2+ (NEGATIVE)
[2018-01-28 22:18] LABS: *URINE HCG, QUAL NEGATIVE (NEGATIVE)
[2018-01-28 22:24] LABS: BACTERIA,URINE NONE SEEN /HPF (NONE SEEN); SQUAMOUS EPITHELIAL CELL,UR FEW /HPF (NONE SEEN); WBC,URINE 0-3 /HPF (0-3); YEAST,URINE FEW /HPF (NONE SEEN)
[2018-01-28 22:32] LABS: CREATININE 0.8 mg/dL (0.6-1.3); POTASSIUM 4.4 mmol/L (3.5-5.1)
[2018-01-28 22:38] LABS: BILIRUBIN,DIRECT 0.1 mg/dL (0.0-0.2); BILIRUBIN,TOTAL 0.3 mg/dL (0.2-1.0); TOTAL PROTEIN, SERUM 7.2 g/dL (6.4-8.2)
[2018-01-28] MEDS ORDERED: SWABABLE VALVE TRANSFER SET EA MC ONE (22:43)
[2018-01-28] MEDS ORDERED: NORMAL SALINE FLUSH 10 ML DISP.SYRIN ONE (22:43)
[2018-01-28] MEDS ORDERED: IV NORMAL SALINE 250 ML IV ONE (22:44)
[2018-01-28] MEDS ORDERED: IOHEXOL 300MG/ML 100 ML INFUS..BTL ONE (22:44)
--- NOTE | 2018-01-28 22:53 | NUR ---
PT TAKEN TO RADIOLOGY FOR CT. NO DISTRESS NOTED.
[2018-01-28] MEDS ORDERED: IV NORMAL SALINE 1000 ML BAG IV ONE (23:15)
[2018-01-28] MEDS ORDERED: INSULIN REGULAR, HUMAN 1,000 UNITS/10 ML VIAL SUBCUT ONE (23:15)
[2018-01-28] MEDS ORDERED: INSULIN REGULAR, HUMAN 300 UNIT/3 ML VIAL ONE (23:26)
--- NOTE | 2018-01-28 23:30 | NUR ---
PT BACK IN ROOM FROM CT. NO ACUTE EVENTS.
--- NOTE | 2018-01-28 23:53 | NUR ---
PT AMBULATED INDEPENDENTLY TO BATHROOM. NO DISTRESS NOTED.
[2018-01-29] MEDS ORDERED: TRAMADOL HCL 50 MG TABLET PO ONE (00:15)
[2018-01-29] MEDS ORDERED: TRAMADOL HCL 50 MG TABLET ONE (00:15)
--- NOTE | 2018-01-29 00:15 | NUR ---
DR MANUEL DODSON MD AT BEDSIDE FOR REEVAL.
--- NOTE | 2018-01-29 00:39 | NUR ---
PT RESTING IN BED W/ EYES CLOSED. NO DISTRESS NOTED.
--- NOTE | 2018-01-29 01:28 | NUR ---
Patient discharged to home in stable conditon. Written and verbal after care instructions given. Patient verbalizes understanding of instructions. IV removed w/ catheter intact/ pressure applied. no bleeding noted at site. Pt states she feels much better. no distres noted. Pt took all personal belongings.
[2018-01-29 01:32] VITALS: BP 125/75
== END 2018-01-29 01:33 | disposition home or self-care (01) ==
LOC: ER 21:14
DX: S05.12XA Contusion of eyeball and orbital tissues, left eye, initial encounter (principal); E11.65 Type 2 diabetes mellitus with hyperglycemia; D69.6 Thrombocytopenia, unspecified; R74.0 Nonspecific elevation of levels of transaminase and lactic acid dehydrogenase [LDH]; K21.9 Gastro-esophageal reflux disease without esophagitis; Z88.8 Allergy status to other drugs, medicaments and biological substances; Z91.041 Radiographic dye allergy status; Z79.4 Long term (current) use of insulin; V49.9XXA Car occupant (driver) (passenger) injured in unspecified traffic accident, initial encounter; Y93.89 Activity, other specified; Y92.410 Unspecified street and highway as the place of occurrence of the external cause; Y99.8 Other external cause status
CPT/HCPCS: 36415; 70030-TC; 70450; 70486; 71250; 72125; 83690; 84703; 85025; 85730; 93005; A4663; J1815; J3490; J7030; J7050; Q9967

== ENCOUNTER 2018-04-11 06:54 | Emergency (ER) | payer OTHER ==
[~2018-04-11] VITALS: Ht 152.4 cm; Wt 59.0 kg
[2018-04-11] MEDS ORDERED: IV NORMAL SALINE 1000 ML BAG IV ONE (07:15)
[2018-04-11 07:30] LABS: BASOPHILS % (AUTO) 1.1 % (0.0-2.0); HEMATOCRIT 42.7 % (31.2-41.9); HEMOGLOBIN 15.2 g/dL (10.9-14.3); LYMPHOCYTES # (AUTO) 1.3 K/uL (20.0-40.0); LYMPHOCYTES % (AUTO) 34.1 % (20.5-51.5); MEAN CORPUSCULAR HEMOGLOBIN 32.4 uug (24.7-32.8); MEAN CORPUSCULAR HGB CONC 36 g/dL (32.3-35.6); MEAN CORPUSCULAR VOLUME 90.9 fL (75.5-95.3); MONOCYTES # (AUTO) 0.2 K/uL (2.0-10.0); MONOCYTES % (AUTO) 5.1 % (0.0-11.0); NEUTROPHILS # (AUTO) 2.2 K/uL (1.8-8.9); NEUTROPHILS % (AUTO) 58.7 % (38.5-71.5); PLATELET COUNT (AUTO) 158 K/uL (179-408); WHITE BLOOD COUNT (AUTO) 3.8 K/uL (3.8-11.8)
[2018-04-11 07:32] LABS: *URINE HCG, QUAL NEGATIVE (NEGATIVE)
--- NOTE | 2018-04-11 07:33 | NUR ---
PT IS IN ROOM #5A, DR PETERSON EVALUATED THE PT.
[2018-04-11 07:35] LABS: CREATININE 0.7 mg/dL (0.6-1.3); POTASSIUM 3.7 mmol/L (3.5-5.1)
[2018-04-11 07:41] LABS: BILIRUBIN,DIRECT 0.1 mg/dL (0.0-0.2); BILIRUBIN,TOTAL 0.5 mg/dL (0.2-1.0); TOTAL PROTEIN, SERUM 7.3 g/dL (6.4-8.2)
[2018-04-11] MEDS ORDERED: INSULIN REGULAR, HUMAN 1,000 UNITS/10 ML VIAL IV ONE (07:45)
[2018-04-11] MEDS ORDERED: ONDANSETRON 4 MG/2 ML VIAL IV ONE (07:45)
[2018-04-11] MEDS ORDERED: LORAZEPAM 2 MG/1 ML VIAL IV ONE (07:45)
[2018-04-11 07:52] LABS: ABG BASE EXCESS 1.7 mmol/L; ABG HCO3 26.9 mmol/L; ABG PCO2 44.5 mmHg (35.0-45.0); ABG PH 7.399 (7.350-7.450); ABG PO2 97.3 mmHg (75.0-100.0); ABG SITE RIGHT BRACHIAL; COHb 1.4 % (0.5-1.5); MetHb 0.3 % (0.0-1.5); O2Hb 95.7 % (94.0-97.0); VENT MODE ROOM AIR
[2018-04-11] MEDS ORDERED: INSULIN REGULAR, HUMAN 300 UNIT/3 ML VIAL ONE (07:54)
[2018-04-11] MEDS ORDERED: ONDANSETRON 4 MG/2 ML VIAL ONE (07:54)
[2018-04-11 07:56] LABS: *BILIRUBIN,URIN NEGATIVE (NEGATIVE); *BLOOD, URINE Trace-intact (NEGATIVE); *CLARITY,URINE CLOUDY (CLEAR); *COLOR,URINE YELLOW (YELLOW); *KETONES,URINE NEGATIVE (NEGATIVE); *PROTEIN,URINE NEGATIVE (NEGATIVE); *UROBILINOGEN,URINE 0.2 E.U./dl (NORMAL); LEUKOCYTE ESTERASE ,URINE TRACE (NEGATIVE); NITRITE, URINE NEGATIVE (NEGATIVE); PH,URINE 5.5 (5.0-8.0)
[2018-04-11] MEDS ORDERED: LORAZEPAM 2 MG/1 ML VIAL ONE (07:57)
[2018-04-11 07:58] LABS: UGLUCOSE 2+ (NEGATIVE)
[2018-04-11 08:02] LABS: BACTERIA,URINE MANY /HPF (NONE SEEN); SQUAMOUS EPITHELIAL CELL,UR FEW /HPF (NONE SEEN); WBC,URINE 80-100 /HPF (0-3)
[2018-04-11] MEDS ORDERED: SUMATRIPTAN SUCCINATE 6 MG/0.5 ML VIAL SQ ONE ×2 (08:10→08:15)
[2018-04-11] MEDS ORDERED: CEFTRIAXONE 1 G VIAL ONE (08:14)
[2018-04-11] MEDS ORDERED: CEFTRIAXONE 2 G in IV DEXTROSE 5% 100 ML IV ONE (08:15)
--- NOTE | 2018-04-11 10:07 | NUR ---
mse completed. iv d/c'd intact. rx x3, Patient discharged to home in stable conditon. Written and verbal after care instructions given. Patient verbalizes understanding of instructions,pt ambulatory with a steady gait, took al belongings.
[2018-04-11 10:14] VITALS: BP 110/81
== END 2018-04-11 10:15 | disposition home or self-care (01) ==
LOC: ER 06:54
DX: R51 Headache (principal); N12 Tubulo-interstitial nephritis, not specified as acute or chronic; E11.65 Type 2 diabetes mellitus with hyperglycemia; Z88.8 Allergy status to other drugs, medicaments and biological substances; Z88.6 Allergy status to analgesic agent
CPT/HCPCS: 36415; 36600; 71045; 76775; 80048; 80076; 81001; 82009; 84703; 85025; 87077; 87086; 96361; 96365; 96372; 96375; 99285; A4663; J0696; J1815; J2060; J2405; J3030; J7030; J7060

== ENCOUNTER 2018-08-03 20:33 | Emergency (ER) | payer MEDICAID, OTHER ==
[~2018-08-03] VITALS: Ht 152.4 cm; Wt 61.2 kg
[2018-08-03] MEDS ORDERED: HYDROMORPHONE 1 MG/1 ML DISP.SYRIN IM ONE (21:00)
[2018-08-03] MEDS ORDERED: ONDANSETRON IV *ER 4 MG/2 ML VIAL IM ONE (21:00)
[2018-08-03 21:05] LABS: *BILIRUBIN,URIN NEGATIVE (NEGATIVE); *BLOOD, URINE NEGATIVE (NEGATIVE); *CLARITY,URINE SLIGHTLY CLOUDY (CLEAR); *COLOR,URINE YELLOW (YELLOW); *KETONES,URINE NEGATIVE (NEGATIVE); *UROBILINOGEN,URINE 0.2 E.U./dl (NORMAL); LEUKOCYTE ESTERASE ,URINE NEGATIVE (NEGATIVE); NITRITE, URINE POSITIVE (NEGATIVE); PH,URINE 6.5 (5.0-8.0)
[2018-08-03 21:06] LABS: UGLUCOSE 2+ (NEGATIVE)
[2018-08-03 21:07] LABS: *URINE HCG, QUAL NEGATIVE (NEGATIVE)
[2018-08-03] MEDS ORDERED: ONDANSETRON 4 MG/2 ML VIAL ONE (21:12)
[2018-08-03] MEDS ORDERED: HYDROMORPHONE 1 MG/1 ML DISP.SYRIN ONE (21:12)
[2018-08-03 21:13] LABS: BACTERIA,URINE MANY /HPF (NONE SEEN); RBC,URINE 0-3 /HPF (0-3); SQUAMOUS EPITHELIAL CELL,UR FEW /HPF (NONE SEEN)
--- NOTE | 2018-08-03 21:22 | NUR ---
PATIENT OUT OF UNIT FOR CT SCAN VIA GURNY
[2018-08-03] MEDS ORDERED: SULFAMETH/TRIMETH 800/160 MG TABLET ONE (22:45)
[2018-08-03] MEDS ORDERED: SULFAMETH/TRIMETH 800/160 MG TABLET PO ONE (22:45)
[2018-08-03] MEDS ORDERED: diphenhydrAMINE 50 MG/1 ML VIAL IM ONE (22:45)
[2018-08-03] MEDS ORDERED: INSULIN REGULAR, HUMAN 300 UNIT/3 ML VIAL SQ ONE (22:45)
[2018-08-03] MEDS ORDERED: diphenhydrAMINE 50 MG/1 ML VIAL ONE (22:45)
[2018-08-03] MEDS ORDERED: INSULIN REGULAR, HUMAN 300 UNIT/3 ML VIAL ONE (22:45)
--- NOTE | 2018-08-03 22:56 | NUR ---
Patient discharged to home in stable conditon. Written and verbal after care instructions given. Instructed patient not to drive. Patient verbalizes understanding of instructions. Patient ambulated out of dept with steady gait.
[2018-08-03 22:57] VITALS: BP 145/91
== END 2018-08-03 22:58 | disposition home or self-care (01) ==
LOC: ER 20:33
DX: N39.0 Urinary tract infection, site not specified (principal); E11.9 Type 2 diabetes mellitus without complications; Z88.8 Allergy status to other drugs, medicaments and biological substances; Z79.4 Long term (current) use of insulin
CPT/HCPCS: 74176; 81001; 82962; 84703; 96372 ×4; 99284; J1170; J1200; J1815; J2405; A4663

== ENCOUNTER 2018-12-12 00:46 | Emergency (ER) | payer MEDICAID ==
[~2018-12-12] VITALS: Ht 152.4 cm; Wt 58.1 kg
--- NOTE | 2018-12-12 01:08 | NUR ---
Dr. Vicente at bedside for MSE.
[2018-12-12] MEDS ORDERED: OXYCODONE/APAP 5-325 MG TABLET PO ONE (01:15)
[2018-12-12] MEDS ORDERED: ONDANSETRON ODT 4 MG TAB.RAPDIS SL ONE (01:15)
[2018-12-12] MEDS ORDERED: OXYCODONE/APAP 5-325 MG TABLET ONE (01:16)
[2018-12-12] MEDS ORDERED: ONDANSETRON ODT 4 MG TAB.RAPDIS ONE (01:16)
--- NOTE | 2018-12-12 01:20 | NUR ---
Patient discharged to home in stable conditon. Written and verbal after care instructions given. Patient verbalizes understanding of instructions. Patient ambulated out of ER with steady gait, no acute signs of distress, VSS, all belongings taken.
[2018-12-12 01:24] VITALS: BP 155/98
== END 2018-12-12 01:24 | disposition home or self-care (01) ==
LOC: ER 00:49
DX: K08.89 Other specified disorders of teeth and supporting structures (principal); G43.909 Migraine, unspecified, not intractable, without status migrainosus; E11.9 Type 2 diabetes mellitus without complications; Z88.8 Allergy status to other drugs, medicaments and biological substances; Z79.4 Long term (current) use of insulin
CPT/HCPCS: A4663; Q0162

== ENCOUNTER 2018-12-30 01:22 | Emergency (ER) | payer MEDICAID ==
[~2018-12-30] VITALS: Ht 162.6 cm; Wt 56.7 kg
--- NOTE | 2018-12-30 01:50 | NUR ---
Patient ambulated with stable gait. Speech clear A/Ox4. Patient came for c/o migraine, abdominal pain and nausea.
[2018-12-30] MEDS ORDERED: ONDANSETRON 4 MG/2 ML VIAL IV ONE (02:00)
[2018-12-30] MEDS ORDERED: IV NORMAL SALINE 1000 ML BAG IV ONE (02:00)
[2018-12-30] MEDS ORDERED: PANTOPRAZOLE SODIUM 40 MG VIAL IV ONE (02:00)
[2018-12-30] MEDS ORDERED: ONDANSETRON 4 MG/2 ML VIAL ONE (02:18)
[2018-12-30] MEDS ORDERED: PANTOPRAZOLE SODIUM 40 MG VIAL ONE (02:18)
[2018-12-30 02:20] LABS: BASOPHILS % (AUTO) 0.6 % (0.0-2.0); EOSINOPHILS % (AUTO) 0.9 % (0.0-7.0); HEMATOCRIT 42.3 % (31.2-41.9); HEMOGLOBIN 14.7 g/dL (10.9-14.3); LYMPHOCYTES # (AUTO) 1.3 K/uL (20.0-40.0); LYMPHOCYTES % (AUTO) 35.9 % (20.5-51.5); MEAN CORPUSCULAR HEMOGLOBIN 30.6 uug (24.7-32.8); MEAN CORPUSCULAR HGB CONC 35 g/dL (32.3-35.6); MEAN CORPUSCULAR VOLUME 88.2 fL (75.5-95.3); MONOCYTES # (AUTO) 0.2 K/uL (2.0-10.0); MONOCYTES % (AUTO) 4.6 % (0.0-11.0); NEUTROPHILS # (AUTO) 2.1 K/uL (1.8-8.9); PLATELET COUNT (AUTO) 157 K/uL (179-408); WHITE BLOOD COUNT (AUTO) 3.6 K/uL (3.8-11.8)
[2018-12-30 02:21] LABS: *URINE HCG, QUAL NEGATIVE (NEGATIVE)
[2018-12-30 02:24] LABS: *BILIRUBIN,URIN NEGATIVE (NEGATIVE); *BLOOD, URINE NEGATIVE (NEGATIVE); *CLARITY,URINE CLEAR (CLEAR); *COLOR,URINE YELLOW (YELLOW); *KETONES,URINE NEGATIVE (NEGATIVE); *UROBILINOGEN,URINE 0.2 E.U./dl (NORMAL); LEUKOCYTE ESTERASE ,URINE TRACE (NEGATIVE); NITRITE, URINE NEGATIVE (NEGATIVE)
[2018-12-30 02:25] LABS: UGLUCOSE 2+ (NEGATIVE)
[2018-12-30 02:27] LABS: POTASSIUM 4.2 mmol/L (3.5-5.1)
[2018-12-30 02:30] LABS: BILIRUBIN,DIRECT 0.1 mg/dL (0.0-0.2); BILIRUBIN,TOTAL 0.4 mg/dL (0.2-1.0); TOTAL PROTEIN, SERUM 7.8 g/dL (6.4-8.2)
[2018-12-30 02:37] LABS: BACTERIA,URINE FEW /HPF (NONE SEEN); RBC,URINE 0-3 /HPF (0-3); SQUAMOUS EPITHELIAL CELL,UR FEW /HPF (NONE SEEN); WBC,URINE 20-50 /HPF (0-3)
[2018-12-30] MEDS ORDERED: INSULIN REGULAR, HUMAN 300 UNIT/3 ML VIAL IV ONE (02:45)
[2018-12-30] MEDS ORDERED: INSULIN REGULAR, HUMAN 300 UNIT/3 ML VIAL ONE (02:49)
[2018-12-30] MEDS ORDERED: MAG HYDROX/AL HYDROX/SIMETH 30 ML LIQUID UDC PO ONE (03:00)
[2018-12-30] MEDS ORDERED: MAG HYDROX/AL HYDROX/SIMETH 30 ML LIQUID UDC ONE (03:00)
[2018-12-30] MEDS ORDERED: CEFTRIAXONE 1 G in IV DEXTROSE 5% 50 ML IV ONE (03:00)
[2018-12-30] MEDS ORDERED: CEFTRIAXONE 1 G VIAL ONE (03:00)
[2018-12-30] MEDS ORDERED: LIDOCAINE VISCUS 2% 15 ML UDC MM ONE (03:00)
[2018-12-30] MEDS ORDERED: LIDOCAINE VISCUS 2% 15 ML UDC ONE (03:00)
[2018-12-30] MEDS ORDERED: HYDROCODONE/APAP 5-325MG TABLET PO ONE (03:45)
--- NOTE | 2018-12-30 03:50 | NUR ---
Ceftriaxone infusion completed at 0350
[2018-12-30] MEDS ORDERED: HYDROCODONE/APAP 5-325MG TABLET ONE (03:52)
--- NOTE | 2018-12-30 04:04 | NUR ---
Patient in bed, resting. NAD
--- NOTE | 2018-12-30 05:10 | NUR ---
Patient discharged to home in stable conditon. Written and verbal after care instructions given. Patient verbalizes understanding of instructions. Patient ambulated with stable gait.
[2018-12-30 05:20] VITALS: BP 128/82
== END 2018-12-30 05:30 | disposition home or self-care (01) ==
LOC: ER 01:24
DX: A08.4 Viral intestinal infection, unspecified (principal); G43.909 Migraine, unspecified, not intractable, without status migrainosus; E11.9 Type 2 diabetes mellitus without complications; Z88.8 Allergy status to other drugs, medicaments and biological substances; Z79.4 Long term (current) use of insulin
CPT/HCPCS: 36415; 71045; 80048; 80076; 81000; 81001; 83690; 84484; 84703; 85025; 87086; 93005; 96365; 96372; 96375; 99284; C9113; J0696; J1815; J2405; J7060; 70030-TC; A4663; J7030

== ENCOUNTER 2019-03-12 14:45 | Inpatient (IN) | payer MEDICAID ==
[~2019-03-12] VITALS: Ht 152.4 cm; Wt 61.2 kg
[2019-03-12] MEDS ORDERED: IV NORMAL SALINE 1000 ML BAG IV ONE (15:00)
[2019-03-12] MEDS ORDERED: FENTANYL CITRATE 100 MCG/2 ML AMPUL IV ONE (15:15)
[2019-03-12] MEDS ORDERED: ONDANSETRON 4 MG/2 ML VIAL IV ONE (15:15)
[2019-03-12 15:21] LABS: HEMATOCRIT 41.6 % (31.2-41.9); HEMOGLOBIN 14.6 g/dL (10.9-14.3); LYMPHOCYTES # (AUTO) 1.5 K/uL (20.0-40.0); MONOCYTES # (AUTO) 0.2 K/uL (2.0-10.0); MONOCYTES % (AUTO) 4.6 % (0.0-11.0); NEUTROPHILS # (AUTO) 3.2 K/uL (1.8-8.9); RED BLOOD CELL COUNT(AUTO) 4.66 MIL/uL (3.63-4.92)
[2019-03-12] MEDS ORDERED: ONDANSETRON 4 MG/2 ML VIAL ONE (15:21)
[2019-03-12] MEDS ORDERED: FENTANYL CITRATE 100 MCG/2 ML AMPUL ONE (15:21)
[2019-03-12 15:26] LABS: BASOPHILS % (AUTO) 0.6 % (0.0-2.0); EOSINOPHILS % (AUTO) 0.7 % (0.0-7.0); LYMPHOCYTES % (AUTO) 30.4 % (20.5-51.5); MEAN CORPUSCULAR HEMOGLOBIN 31.3 uug (24.7-32.8); MEAN CORPUSCULAR HGB CONC 35 g/dL (32.3-35.6); MEAN CORPUSCULAR VOLUME 89.2 fL (75.5-95.3); NEUTROPHILS % (AUTO) 63.7 % (38.5-71.5); PLATELET COUNT (AUTO) 158 K/uL (179-408)
[2019-03-12 15:29] LABS: CREATININE 0.9 mg/dL (0.6-1.3); POTASSIUM 4.6 mmol/L (3.5-5.1)
[2019-03-12 15:32] LABS: *BILIRUBIN,URIN NEGATIVE (NEGATIVE); *BLOOD, URINE 1+ (NEGATIVE); *KETONES,URINE NEGATIVE (NEGATIVE); *UROBILINOGEN,URINE 0.2 E.U./dl (NORMAL); NITRITE, URINE POSITIVE (NEGATIVE); UGLUCOSE 3+ (NEGATIVE)
[2019-03-12 15:35] LABS: BILIRUBIN,DIRECT 0.2 mg/dL (0.0-0.2); BILIRUBIN,TOTAL 0.5 mg/dL (0.2-1.0); TOTAL PROTEIN, SERUM 7.6 g/dL (6.4-8.2)
[2019-03-12 15:43] LABS: *CLARITY,URINE CLOUDY (CLEAR); *COLOR,URINE YELLOW (YELLOW); LEUKOCYTE ESTERASE ,URINE 2+ (NEGATIVE)
[2019-03-12 15:45] LABS: WBC,URINE 80-100 /HPF (0-3)
[2019-03-12 15:46] LABS: BACTERIA,URINE MANY /HPF (NONE SEEN); SQUAMOUS EPITHELIAL CELL,UR MANY /HPF (NONE SEEN)
[2019-03-12] MEDS ORDERED: HYDROMORPHONE 1 MG/1 ML DISP.SYRIN IV ONE (16:45)
[2019-03-12] MEDS ORDERED: CEFTRIAXONE 1 G VIAL IM ONE (16:45)
[2019-03-12] MEDS ORDERED: IV NS 1000 ML 1,000 ML IV ONE (16:45)
[2019-03-12] MEDS ORDERED: INSULIN REGULAR, HUMAN 300 UNITS/3 ML VIAL SQ PRN (17:45)
[2019-03-12] MEDS ORDERED: DEXTROSE 50% 50 ML DISP.SYRIN IV PRN (17:45)
[2019-03-12] MEDS ORDERED: MAGNESIUM HYDROXIDE 30 ML LIQUID UDC PO PRN (18:30)
[2019-03-12] MEDS ORDERED: MORPHINE SULFATE 2 MG/1 ML DISP.SYRIN IV PRN (18:30)
[2019-03-12] MEDS ORDERED: HYDROCODONE/APAP 5-325MG TABLET PO PRN (18:30)
[2019-03-12] MEDS ORDERED: ACETAMINOPHEN 325 MG TABLET PO PRN (18:30)
--- NOTE | 2019-03-12 19:38 | NUR ---
Pt. admitted to [facility], under care of Belongs List completed
[2019-03-12 20:12] VITALS: BP 154/103
--- NOTE | 2019-03-12 20:30 | NUR ---
patient was admitted from ER. IV patent and intact. belongings list completed. v/s stable. no signs of acute. safety and comfort measures provided.
[2019-03-12] MEDS: IV 1/2NS 1000 ML 1,000 ML IV PRN ×2 (20:35→21:16)
--- NOTE | 2019-03-12 21:00 | NUR ---
patient reported allergic reaction to morphine, Javier Peterson made aware and order changed to Dilaudid by .
[2019-03-12] MEDS: HYDROMORPHONE 1 MG/1 ML DISP.SYRIN IV PRN ×2 (21:03→21:11)
[2019-03-12] MEDS: BLOOD SUGAR DIAGNOSTIC 1 EACH STRIP VI SCH (21:11)
[2019-03-12] MEDS: INSULIN GLARGINE,HUM 300 UNITS/3 ML CARTRIDGE SQ SCH (21:14)
--- NOTE | 2019-03-12 22:35 | NUR ---
patient reported itching on her body, MD Herrera made aware and order for Benadryl 25 mg PO q4h ordered.
[2019-03-12] MEDS: diphenhydrAMINE 25 MG CAP PO PRN (22:48)
[2019-03-13] MEDS: HYDROMORPHONE 1 MG/1 ML DISP.SYRIN IV PRN ×5 (01:31→20:45)
[2019-03-13 04:48] VITALS: BP 169/97
--- NOTE | 2019-03-13 05:30 | NUR ---
patients BP is decreasing to 151/94 after administration of norco at 0442. will continue to monitor.
--- NOTE | 2019-03-13 05:42 | NUR ---
patient slept intermittently throughout the night. safety and comfort measures provided at all times. v/s stable. no signs of acute distress. patient denied any itchiness at this time after 1x administration of Benadryl. Dilaudid administered at 2111 and 0131 for c/o pain. patient tolerated well. at beginning of shift accidentally acknowledged/administered under morning nurses name, however it was undone and acknowledgement/administration was completed under my name. charge aware of the situation.
[2019-03-13] MEDS: PANTOPRAZOLE SODIUM 40 MG TABLET.DR PO SCH (06:03)
[2019-03-13 06:20] LABS: BASOPHILS % (AUTO) 0.6 % (0.0-2.0); EOSINOPHILS # (AUTO) 0.1 K/uL (0.0-0.7); EOSINOPHILS % (AUTO) 1.6 % (0.0-7.0); HEMATOCRIT 38.8 % (31.2-41.9); HEMOGLOBIN 13.2 g/dL (10.9-14.3); LYMPHOCYTES # (AUTO) 1.4 K/uL (20.0-40.0); LYMPHOCYTES % (AUTO) 41.7 % (20.5-51.5); MEAN CORPUSCULAR HEMOGLOBIN 30.3 uug (24.7-32.8); MEAN CORPUSCULAR HGB CONC 34 g/dL (32.3-35.6); MEAN CORPUSCULAR VOLUME 88.9 fL (75.5-95.3); MONOCYTES # (AUTO) 0.1 K/uL (2.0-10.0); MONOCYTES % (AUTO) 4.4 % (0.0-11.0); NEUTROPHILS # (AUTO) 1.7 K/uL (1.8-8.9); NEUTROPHILS % (AUTO) 51.7 % (38.5-71.5); PLATELET COUNT (AUTO) 144 K/uL (179-408); RED BLOOD CELL COUNT(AUTO) 4.36 MIL/uL (3.63-4.92); WHITE BLOOD COUNT (AUTO) 3.3 K/uL (3.8-11.8)
[2019-03-13 06:42] LABS: THYROID STIMULATING HORMONE 3.527 mIU/mL (0.358-3.740)
[2019-03-13 06:44] LABS: BILIRUBIN,TOTAL 0.4 mg/dL (0.2-1.0); CREATININE 0.6 mg/dL (0.6-1.3); MAGNESIUM 1.5 mg/dL (1.8-2.4); PHOSPHOROUS 4.4 mg/dL (2.5-4.9); POTASSIUM 3.9 mmol/L (3.5-5.1); TOTAL PROTEIN, SERUM 6.5 g/dL (6.4-8.2)
[2019-03-13] MEDS: BLOOD SUGAR DIAGNOSTIC 1 EACH STRIP VI SCH ×4 (07:25→20:35)
--- NOTE | 2019-03-13 07:30 | NUR ---
came to my knowledge that patient had some lose pills with her during admission. I went to patient to ask her about the pills and patient stated that she had threw them out and she no longer had them with her.
[2019-03-13] MEDS: INSULIN REGULAR, HUMAN 300 UNIT/3 ML VIAL SQ PRN ×3 (08:15→20:36)
[2019-03-13] MEDS ORDERED: MAGNESIUM OXIDE 400 MG TABLET PO ONE (08:15)
--- NOTE | 2019-03-13 09:00 | NUR ---
PATIENT IS AWAKE ALERT AND ORIENTED REMAIN ON PAIN MEDICATIONS ORDERED AND HELPFUL CALL LIGHTS AND PERSONAL BELONGINGS PLACED WITHIN EASY REACH MADE COMFORTABLE AND WILL CONTINUE TO OBSERVE.
[2019-03-13 11:16] VITALS: BP 144/95
[2019-03-13] MEDS: diphenhydrAMINE 25 MG CAP PO PRN (13:48)
--- NOTE | 2019-03-13 13:48 | NUR ---
PATIENT STATED THAT SHE IS ITCHING MEDICATED WITH BENADRYL ORDERED AND WILL CONTINUE TO OBSERV
[2019-03-13 15:17] VITALS: BP 171/113
[2019-03-13] MEDS: IV 1/2NS 1000 ML 1,000 ML IV PRN ×2 (15:25→15:29)
[2019-03-13] MEDS: ONDANSETRON 4 MG/2 ML VIAL IV PRN (15:29)
--- NOTE | 2019-03-13 15:50 | NUR ---
PATIENT STATED THAT HER ITCHING WAS WORSE STATED THAT IT STARTED WHEN SHE RECEIVED THE ROCEPHIN AT THE ER NOTED THAT SHE IS SCRATCHING WITH SOME REDNESS ON HER LEGS HER BLOOD PRESSURE IS 178/113 DANIEL ELECTRONIC MAINTENANCE SUPERVISOR NOTIFIED WITH NEW ORDERS STATED TO INFORM DR LARA RE ITCHING ASSOCIATED WITH THE ROCEPHIN.
--- NOTE | 2019-03-13 16:25 | NUR ---
CALLED AND SPOKE WITH DR LARA STATED TO DISCONTINUE THE ROCEPHIN AND START PATIENT ON [facility] TO DOSE.
[2019-03-13] MEDS ORDERED: DOSING BY PHARMACY-MD TO SPECIFY MED/ROUTE XX PRN (16:30)
[2019-03-13] MEDS ORDERED: CEFTRIAXONE 1 G in IV DEXTROSE 5% 50 ML IV SCH (17:00)
[2019-03-13] MEDS ORDERED: MEROPENEM 1 G in IV NORMAL SALINE 100 ML IV SCH (18:00)
--- NOTE | 2019-03-13 18:00 | NUR ---
[facility] IS IN PROGRESS ORDERED AT [facility] TIME WITH NO S/S OF ADVERSE OR ALLERGIC REACTIONS AT THIS TIME.
--- NOTE | 2019-03-13 19:02 | NUR ---
CLINICAL PHARMACY NOTE:VANCOMYCIN DOSING Request for vancomycin dosing on 44 y/o female 5' 135bls for UTI Temp 98.0 BUN 11 Scr 0.6 WBC 3.3 urine culture enterococcus species start vancomycin 1gm ivpb q13h estimate trough 14.9. Will order trough level prior to 4th dose. Will continue to monitor
--- NOTE | 2019-03-13 19:40 | NUR ---
Received patient awake, alert and oriented x 3, ambulatory. No complaints at this time. With IV access on the right hand to IV fluid, infusing well. Will continue to monitor for recurring pain and give prn pain medications. Bed placed in low position, locked, side rails up for safety. Will continue to monitor for other complaints.
[2019-03-13 19:57] VITALS: BP 98/47
[2019-03-13] MEDS: INSULIN GLARGINE,HUM 300 UNITS/3 ML CARTRIDGE SQ SCH (20:37)
[2019-03-13] MEDS: VANCOMYCIN IV 1,000 MG in IV DEXTROSE 5% 250 ML IV SCH (20:38)
[2019-03-13] MEDS: diphenhydrAMINE 50 MG/1 ML VIAL IV PRN (22:12)
[2019-03-14] MEDS: HYDROMORPHONE 1 MG/1 ML DISP.SYRIN IV PRN ×3 (01:48→09:28)
[2019-03-14] MEDS: diphenhydrAMINE 50 MG/1 ML VIAL IV PRN ×3 (04:23→19:56)
[2019-03-14 04:45] VITALS: BP 166/110
[2019-03-14] MEDS: PANTOPRAZOLE SODIUM 40 MG TABLET.DR PO SCH (06:43)
[2019-03-14] MEDS: CLONIDINE HCL 0.1 MG TABLET PO PRN (06:43)
--- NOTE | 2019-03-14 06:52 | NUR ---
Patient slept intermittently throughout the night. With complaints of pain, prn medications given. Attended all needs. Ensured safety and comfort.
[2019-03-14 06:54] LABS: BASOPHILS % (AUTO) 0.3 % (0.0-2.0); EOSINOPHILS # (AUTO) 0.1 K/uL (0.0-0.7); EOSINOPHILS % (AUTO) 1.9 % (0.0-7.0); HEMATOCRIT 40.4 % (31.2-41.9); HEMOGLOBIN 14.2 g/dL (10.9-14.3); LYMPHOCYTES # (AUTO) 1.2 K/uL (20.0-40.0); LYMPHOCYTES % (AUTO) 35.7 % (20.5-51.5); MEAN CORPUSCULAR HEMOGLOBIN 31.3 uug (24.7-32.8); MEAN CORPUSCULAR HGB CONC 35 g/dL (32.3-35.6); MEAN CORPUSCULAR VOLUME 88.9 fL (75.5-95.3); MONOCYTES # (AUTO) 0.2 K/uL (2.0-10.0); MONOCYTES % (AUTO) 4.5 % (0.0-11.0); NEUTROPHILS % (AUTO) 57.6 % (38.5-71.5); PLATELET COUNT (AUTO) 135 K/uL (179-408); RED BLOOD CELL COUNT(AUTO) 4.54 MIL/uL (3.63-4.92); WHITE BLOOD COUNT (AUTO) 3.5 K/uL (3.8-11.8)
[2019-03-14 07:25] LABS: CREATININE 0.7 mg/dL (0.6-1.3); MAGNESIUM 1.8 mg/dL (1.8-2.4); POTASSIUM 4.2 mmol/L (3.5-5.1)
[2019-03-14] MEDS: BLOOD SUGAR DIAGNOSTIC 1 EACH STRIP VI SCH ×7 (07:39→20:12)
--- NOTE | 2019-03-14 08:31 | NUR ---
patient awake, alert and oriented x 4, ambulatory. pt. denies any SOB or difficulty breathing. Pt c/o 10/07 back pain. PRN pain medication due at 9 AM. IV access on the right forearm 20 gauge intact patent running fluid. Bed placed in low position, locked, side rails up for safety. Will continue to monitor
--- NOTE | 2019-03-14 08:39 | NUR ---
CLINICAL PHARMACY NOTE:VANCOMYCIN DOSING Ton continue vancomycin dosing on 44 y/o female 5' 135bls for UTI Temp 98.2 BUN 11 (03/13) Scr 0.6 (03/13) WBC 3.5 urine culture enterococcus species Will continue vancomycin 1gm ivpb q13h estimate trough 14.9. Trough level prior to 4th dose, ordered and due tomorrow 03/15 @1030. Will check level when available and adjust as needed. Will continue to monitor
[2019-03-14] MEDS: INSULIN REGULAR, HUMAN 300 UNIT/3 ML VIAL SQ PRN ×2 (08:43→13:05)
[2019-03-14] MEDS: VANCOMYCIN IV 1,000 MG in IV DEXTROSE 5% 250 ML IV SCH ×2 (09:28→21:04)
[2019-03-14] MEDS ORDERED: HYDROMORPHONE 1 MG/1 ML DISP.SYRIN IV PRN (10:30)
[2019-03-14] MEDS ORDERED: DEXTROSE 50% 50 ML DISP.SYRIN IV PRN (10:45)
[2019-03-14 11:02] VITALS: BP 150/100
[2019-03-14] MEDS: HYDROMORPHONE 2 MG/1 ML DISP.SYRIN IV PRN ×3 (12:37→21:03)
[2019-03-14 15:02] VITALS: BP 139/87
[2019-03-14] MEDS: IV 1/2NS 1000 ML 1,000 ML IV PRN (18:41)
[2019-03-14 20:02] VITALS: BP 154/98
[2019-03-14] MEDS: INSULIN REGULAR, HUMAN 300 UNITS/3 ML VIAL SQ PRN (20:06)
[2019-03-14] MEDS: INSULIN GLARGINE,HUM 300 UNITS/3 ML CARTRIDGE SQ SCH (20:07)
[2019-03-14] MEDS: ZOLPIDEM 5 MG TABLET PO PRN (22:00)
[2019-03-15] MEDS: HYDROMORPHONE 2 MG/1 ML DISP.SYRIN IV PRN ×6 (00:18→20:14)
[2019-03-15 05:00] VITALS: BP 153/94
[2019-03-15] MEDS: ONDANSETRON 4 MG/2 ML VIAL IV PRN ×2 (05:45→12:16)
[2019-03-15] MEDS: IV 1/2NS 1000 ML 1,000 ML IV PRN (05:55)
[2019-03-15] MEDS: diphenhydrAMINE 50 MG/1 ML VIAL IV PRN ×3 (05:59→21:36)
[2019-03-15] MEDS: PANTOPRAZOLE SODIUM 40 MG TABLET.DR PO SCH (06:00)
--- NOTE | 2019-03-15 06:12 | NUR ---
Patient slept intermittently throughout the night. With complaints of pain, prn medications given. Patient reported that she vomited x 4 times, prn nausea and vomiting medication given. Will continue to monitor and endorse accordingly. Attended all needs. Ensured safety and comfort.
[2019-03-15 06:43] LABS: CREATININE 0.7 mg/dL (0.6-1.3); POTASSIUM 4.3 mmol/L (3.5-5.1)
[2019-03-15] MEDS: BLOOD SUGAR DIAGNOSTIC 1 EACH STRIP VI SCH ×4 (06:43→20:21)
[2019-03-15 07:29] LABS: BASOPHILS % (AUTO) 0.5 % (0.0-2.0); EOSINOPHILS # (AUTO) 0.1 K/uL (0.0-0.7); EOSINOPHILS % (AUTO) 1.5 % (0.0-7.0); HEMATOCRIT 38.8 % (31.2-41.9); HEMOGLOBIN 13.4 g/dL (10.9-14.3); LYMPHOCYTES # (AUTO) 1.3 K/uL (20.0-40.0); LYMPHOCYTES % (AUTO) 27.4 % (20.5-51.5); MEAN CORPUSCULAR HGB CONC 35 g/dL (32.3-35.6); MEAN CORPUSCULAR VOLUME 89.6 fL (75.5-95.3); MONOCYTES # (AUTO) 0.2 K/uL (2.0-10.0); MONOCYTES % (AUTO) 3.6 % (0.0-11.0); NEUTROPHILS # (AUTO) 3.1 K/uL (1.8-8.9); PLATELET COUNT (AUTO) 155 K/uL (179-408); RED BLOOD CELL COUNT(AUTO) 4.33 MIL/uL (3.63-4.92)
[2019-03-15 07:36] LABS: WHITE BLOOD COUNT (AUTO) 4.7 K/uL (3.8-11.8)
[2019-03-15] MEDS ORDERED: IV NORMAL SALINE 500 ML BAG IV ONE (08:15)
[2019-03-15] MEDS ORDERED: ONDANSETRON 4 MG/2 ML VIAL IV ONE (08:45)
[2019-03-15] MEDS ORDERED: KETOROLAC TROMETHAMINE 15 MG INJ IM PRN (08:45)
--- NOTE | 2019-03-15 11:25 | NUR ---
CLINICAL PHARMACY NOTE:VANCOMYCIN DOSING S To continue vancomycin dosing on 44 y/o female for UTI O Temp 97.5 BUN 23 Scr 0.7 WBC 4.7 Vanco trough level: 13.1 Plan Will change dose to vancomycin 1gm ivpb q12h estimate trough 15.4. 1st dose today at noon. Trough level prior to 4th dose, ordered (not yet ordered). Will check level when available and adjust as needed. Will continue to monitor
[2019-03-15] MEDS ORDERED: FOSFOMYCIN TROMETHAMINE 3 GM PACKET PO ONE (11:45)
[2019-03-15 11:46] VITALS: BP 139/96
[2019-03-15] MEDS ORDERED: VANCOMYCIN IV 1,000 MG in IV DEXTROSE 5% 250 ML IV SCH (12:00)
[2019-03-15] MEDS ORDERED: METOCLOPRAMIDE HCL 10 MG/2 ML VIAL IV PRN (14:45)
[2019-03-15 16:00] VITALS: BP 112/73
[2019-03-15] MEDS ORDERED: NITROFURANTOIN/NITROFURAN MAC 100 MG CAPSULE PO SCH (17:00)
--- NOTE | 2019-03-15 19:20 | NUR ---
RECEIVED PT AWAKE, ALERT AND ORIENTEDX4. PT SHOWS NO SIGNS OF ACUTE DISTRESS. IV INTACT. PT FELT NAUSEOUS. SAFETY AND COMFORT PROVIDED. WILL CONTINUE TO MONITOR.
[2019-03-15] MEDS: IV NS 1000 ML 1,000 ML IV PRN (19:33)
[2019-03-15 20:00] VITALS: BP 148/101
[2019-03-15] MEDS: INSULIN GLARGINE,HUM 300 UNITS/3 ML CARTRIDGE SQ SCH (20:21)
--- NOTE | 2019-03-15 22:01 | NUR ---
PT REFUSED HER LANTUS KNOWING THAT HER BLOOD SUGAR WAS 85. PT REQUEST BENADRYL . BENADRYL GIVEN. COOLING MEASURES DONE. GAVE TYLENOL PRN. SAFETY AND COMFORT PROVIDED. WILL CONTINUE TO MONITOR.
[2019-03-15] MEDS: ZOLPIDEM 5 MG TABLET PO PRN (23:27)
[2019-03-16] MEDS: IV NS 1000 ML 1,000 ML IV PRN ×3 (01:28→21:47)
[2019-03-16] MEDS: HYDROMORPHONE 2 MG/1 ML DISP.SYRIN IV PRN ×7 (02:14→23:21)
[2019-03-16 04:00] VITALS: BP 120/68
[2019-03-16] MEDS: diphenhydrAMINE 50 MG/1 ML VIAL IV PRN ×4 (04:50→20:22)
[2019-03-16] MEDS: PANTOPRAZOLE SODIUM 40 MG TABLET.DR PO SCH (06:05)
[2019-03-16 06:22] LABS: BASOPHILS % (AUTO) 0.4 % (0.0-2.0); EOSINOPHILS # (AUTO) 0.1 K/uL (0.0-0.7); EOSINOPHILS % (AUTO) 1.9 % (0.0-7.0); HEMATOCRIT 37.4 % (31.2-41.9); HEMOGLOBIN 13.1 g/dL (10.9-14.3); LYMPHOCYTES # (AUTO) 1.3 K/uL (20.0-40.0); LYMPHOCYTES % (AUTO) 42.1 % (20.5-51.5); MEAN CORPUSCULAR HEMOGLOBIN 31.6 uug (24.7-32.8); MEAN CORPUSCULAR HGB CONC 35 g/dL (32.3-35.6); MEAN CORPUSCULAR VOLUME 90.1 fL (75.5-95.3); MONOCYTES # (AUTO) 0.2 K/uL (2.0-10.0); MONOCYTES % (AUTO) 5.6 % (0.0-11.0); NEUTROPHILS # (AUTO) 1.5 K/uL (1.8-8.9); PLATELET COUNT (AUTO) 157 K/uL (179-408); RED BLOOD CELL COUNT(AUTO) 4.15 MIL/uL (3.63-4.92)
[2019-03-16 06:30] LABS: CREATININE 0.7 mg/dL (0.6-1.3); POTASSIUM 3.8 mmol/L (3.5-5.1)
--- NOTE | 2019-03-16 06:38 | NUR ---
PT SLEPT INTERMITTENTLY. PT SHOWS NO SIGNS OF ACUTE DISTRESS. PT IV INTACT. PRECRIBED MEDICATION GIVEN AT PT TOLERATED IT WELL. PT GIVEN TYLENOL 2012H. BENADRYL GIVEN AT 2136H AND 0450H FOR ITCHINESS PER PT REQUEST. AMBIEN GIVEN AT 2327H PER PT REQUEST. 0214H AND 0542H PT GIVEN DILAUDID FOR 8/10 PAIN SCALE ON HER LEFT BACK. PT TOLERATED IT WELL. SAFETY AND COMFORT PROVIDED. ALL NEEDS ARE MET. WILL ENDORSE ACCORDINGLY TO INCOMING NURSE FOR CONTINUITY OF CARE.
[2019-03-16] MEDS: BLOOD SUGAR DIAGNOSTIC 1 EACH STRIP VI SCH ×4 (06:39→20:25)
--- NOTE | 2019-03-16 08:25 | NUR ---
RECEIVED PT RESTING IN ROOM. PT ALERT AND ORIENTED X 3.PT AMBULATORY. NO ACUTE DISTRESS NOTED NO SOB NOTED. PT DENIES PAIN AT THIS TIME. IFV INFUSING WELL. BED LOCKED AND IN LOWEST POSITION. CALL LIGHT WITHIN REACH. WILL CONTINUE TO MONITOR FOR PAIN. WILL CONTINUE PLAN OF CARE.
--- NOTE | 2019-03-16 09:25 | NUR ---
PT COMPLAINED OF PAIN OF 8. DILAUDID GIVEN ORDERED.
--- NOTE | 2019-03-16 11:11 | NUR ---
CLINICAL PHARMACY NOTE:VANCOMYCIN DOSING S To re-start vancomycin dosing on 44 y/o female for UTI x10 days O Temp 98.4 BUN 16 Scr 0.7 WBC 3.0 Vanco trough level on 03/15 at 1030: 13.1 (while on vanco 1gm IV q13h) Plan Will re-start vancomycin 1gm ivpb q12h estimate trough 15.4. 1st dose today at noon. Trough level prior to 4th dose, ordered (not yet ordered). Will check level when available and adjust as needed. Will continue to monitor
--- NOTE | 2019-03-16 11:15 | NUR ---
PT STATED FEELING VERY ITCHY ALL OVER. BENADRYL GIVEN.
[2019-03-16 11:49] VITALS: BP 164/105
[2019-03-16] MEDS: INSULIN REGULAR, HUMAN 300 UNIT/3 ML VIAL SQ PRN ×2 (11:52→17:01)
[2019-03-16] MEDS ORDERED: VANCOMYCIN IV 1,000 MG in IV DEXTROSE 5% 250 ML IV SCH (12:00)
--- NOTE | 2019-03-16 12:00 | NUR ---
PT RESTING COMFORTABLY. ITCHING HAS LESSENED. PAIN HAS LESSENED TO 5. CALL LIGHT WITHIN REACH. VANCOCIN ABX STARTED. WILL CONTINUE TO MONITOR.
[2019-03-16 12:07] VITALS: BP 150/92
--- NOTE | 2019-03-16 12:35 | NUR ---
PT COMPLAINED OF EXTREME ITCHING. UPON OBSERVATION, PT DEVELOPED RAISED HIVES ON R ARM AND PARTS OF HER BODY. VANCOCIN DC'D IMMEDIATELY. LINE FLUSHED. VS: 148/100 98 18 98.4 PT STATES HER TONGUE FEELS SWOLLEN. CONTACTED DOCTOR. AWAITING ORDERS AT THIS TIME.
[2019-03-16] MEDS ORDERED: FAMOTIDINE. 20 MG/2 ML VIAL IV SCH (13:15)
[2019-03-16] MEDS ORDERED: diphenhydrAMINE 50 MG/1 ML VIAL IV ONE (13:15)
[2019-03-16] MEDS ORDERED: IV NORMAL SALINE 500 ML IV ONE (13:15)
[2019-03-16] MEDS ORDERED: methylPREDNISolone SOD SUCC 125 MG/2 ML VIAL IV ONE (13:15)
--- NOTE | 2019-03-16 13:15 | NUR ---
DOCTOR ORDERED BENADRYL, SOLUMEDROL AND IVF OPEN AT THIS TIME. WILL CONTINUE TO MONITOR FOR PROGRESS. PT APPEARS STABLE NO ACUTE RESPIRATORY DISTRESS. NO SOB. SATS 99% ON R/A.
--- NOTE | 2019-03-16 14:30 | NUR ---
PT STATES THAT ITCHING HAS SUBSIDED. REDNESS AND HIVES HAVE LESSENED SIGNIFICANTLY UPON OBSERVATION. PT HAD EMESIS. STATES FEELING BETTER AFTER EMESIS. PT STATES THAT THE FEELING OF SWOLLEN TONGUE IS TOTALLY GONE AT THIS TIME. NO ACUTE DISTRESS OR SOB NOTED. WILL CONTINUE TO MONITOR. 143/92 95 18 99% RA 98.6
[2019-03-16] MEDS: LINEZOLID 600 MG TABLET PO SCH ×2 (14:50→20:21)
[2019-03-16 16:00] VITALS: BP 157/93
--- NOTE | 2019-03-16 18:00 | NUR ---
PT IS RESTING COMFORTABLY IN BED. NO ACUTE DISTRESS OR SOB NOTED. PT PLACED ON STD CARB 60 GM MEAL FULL LIQUID DIET. PT MAKI DIET WELL. WILL ADVANCE TOLERATED. CALL LIGHT WITHIN REACH. BED IN LOWEST POSITION AND LOCKED. PT IS AMBULATORY. PT IS ALERT AND ORIENTED X 3. IVF RUNNING ORDERED. WILL GIVE REPORT ACCORDINGLY.
[2019-03-16 19:45] VITALS: BP 157/105
[2019-03-16] MEDS: INSULIN REGULAR, HUMAN 300 UNITS/3 ML VIAL SQ PRN (20:28)
--- NOTE | 2019-03-16 21:10 | NUR ---
Beginning of Shift/Elevated BP/Blood Sugar, Pain, Itching At around 1927, received report from AM Nurse. At 194, patient is in bed awake, alert and fully oriented. Ambulatory with partner and other family guests at bedside. Complains of 8/10 pain on flank area, itchiness from allergic reaction in the afternoon requesting for medications. Does not appear to be in any acute distress. Initial BP elevated at 154/108. Due medications given at 2019, informed patient that elevated BP is probably from pain and itchiness she is experiencing. At 2109, HS Blood Sugar: 371, Covered with 10 units insulin. Lantus not available, nursing supervisor filter assembly made aware. Rechecked blood pressure at this time and resulted to 158/108. Clonidine 0.1mg given for SBP almost reaching 160, and with elevated diastolic rate. Will continue to monitor.
[2019-03-16] MEDS: CLONIDINE HCL 0.1 MG TABLET PO PRN (21:46)
[2019-03-16] MEDS ORDERED: INSULIN GLARGINE,HUM 300 UNITS/3 ML CARTRIDGE SQ ONE (22:11)
[2019-03-16] MEDS: ZOLPIDEM 5 MG TABLET PO PRN (23:16)
[2019-03-16] MEDS: INSULIN GLARGINE,HUM 300 UNITS/3 ML CARTRIDGE SQ SCH (23:18)
--- NOTE | 2019-03-17 01:05 | NUR ---
Pain Management/Shower At around 1120 03/16 patient complains of 7/10 pain again and Dilaudid 1.5 mg given. She verbalized that it is hard for her to sleep and requested for Ambien. Given. She was also asking for Benadryl, but I explained to her that it is not due in the 6 hours. Also emphasized importance of not giving all these medications, she is at high risk for overdose as well as over sedation. Verbalized understanding. Checked patient at bedtime and patient is sleeping in bed. However, at around 0020 requested for a nurse to ask permission for shower. Explained that she is at high risk for falls because of medications she was administered. verbalized desire to shower and accepting assistance. COMPUTING CONSULTANT assisted patient to shower. Shower chair provided. Peripheral IV held. Pt finished at around 0050. Pt is now assisted back to bed. Lotion provided for skin hydration. Iv re-started. Not in any active distress, pain report is 3/10 tolerable at this time. Will continue to monitor.
[2019-03-17] MEDS: HYDROMORPHONE 2 MG/1 ML DISP.SYRIN IV PRN ×5 (02:32→17:42)
[2019-03-17] MEDS: diphenhydrAMINE 50 MG/1 ML VIAL IV PRN ×3 (02:33→14:53)
--- NOTE | 2019-03-17 04:30 | NUR ---
Confusion/IVF consumed At patient came to station showing IVF being finished, despite it running at 80cc/hr. IV machine checked and it says "Continue Priming?". Patient denied touching controls. However, pt noted to have moved IV pole and keep on ambulating to bathroom. Patient also asked for the 2:30 AM Dilaudid and Benadryl, but informed her that it was given. Removed finished IV line, paused administration. Explained to her again that she cannot touch the controls, and should ask for help when she is ambulating or getting up to the bathroom due to the pain medications she is getting. Assisted back to the room. Pt noted shaking and unable to sleep. Asked for pudding, provided. Will continue to monitor.
[2019-03-17 05:11] VITALS: BP 144/95
--- NOTE | 2019-03-17 05:30 | NUR ---
Pain Management Patient complained of pain again on flank area, crying and requesting pain management. She also complains to have itching still, but explained to her that Benadryl is not yet due at this time. No signs of itching/scratching noted. Pt appears to be confused, suggested to lay down and allow pain medications to work. Pt adamant about keeping television on. Asked for hot water for tea, provided and reinforced safety precautions because of pain medications that were administered to her. She verbalized: "Im not really worried because I have high tolerance, my mother when she had me, was using meth." IVF kept on pause. Will resume before next shift begins. Patient kept on monitoring until able to endorse to AM shift.
[2019-03-17] MEDS: PANTOPRAZOLE SODIUM 40 MG TABLET.DR PO SCH (06:12)
[2019-03-17] MEDS: BLOOD SUGAR DIAGNOSTIC 1 EACH STRIP VI SCH ×5 (06:13→16:42)
[2019-03-17] MEDS: IV NS 1000 ML 1,000 ML IV PRN (06:52)
--- NOTE | 2019-03-17 07:45 | NUR ---
RECEIVED PT. PT WISHING TO TAKE A SHOWER. SHOWER SET UP FOR PATIENT. NO ACUTE DISTRESS NOTED. NO SOB NOTED. PT AMBULATORY. CALL LIGHT WITHIN REACH. BED LOCKED IN LOWEST POSITION. PT STATES HAVING PAIN BUT SHE WISHES TO BATHE FIRST. WILL CONTINUE TO MONITOR FOR PAIN AND COMFORT.
[2019-03-17] MEDS: INSULIN REGULAR, HUMAN 300 UNIT/3 ML VIAL SQ PRN (08:44)
[2019-03-17] MEDS: LINEZOLID 600 MG TABLET PO SCH (08:46)
[2019-03-17 11:01] VITALS: BP 155/103
[2019-03-17] MEDS ORDERED: HYDR-3326 PO (11:28)
[2019-03-17] MEDS ORDERED: LINE600T2 PO (11:28)
--- NOTE | 2019-03-17 11:45 | NUR ---
PT'S BS IS 54. OJ GIVEN PROTOCOL ORDERED.WILL REMEASURE IN 15 MINUTES. Addendum: 03/17/19 at 1320 by ELEN AMEZCUA RN PT AWAKE AND ALERT. NO ACUTE DISTRESS NOTED. NO SOB.
[2019-03-17] MEDS ORDERED: DEXTROSE 50% 50 ML DISP.SYRIN IV PRN (12:00)
[2019-03-17] MEDS ORDERED: INSULIN REGULAR, HUMAN 300 UNIT/3 ML VIAL SQ PRN (12:00)
--- NOTE | 2019-03-17 12:05 | NUR ---
BS RECHECKED: 56. ORANGE JUICE GIVEN PROTOCOL ORDERED. PT AWAKE AND ALERT. NO ACUTE DISTRESS NOTED. NO SOB. WILL RECHECK IN 15 MINUTES.
--- NOTE | 2019-03-17 12:25 | NUR ---
PT'S BS IS 90. NO ACTION NEEDED. PT AWAKE AND ALERT. NO ACUTE DISTRESS NOTED. NO SOB. WILL CONTINUE TO MONITOR.
[2019-03-17] MEDS ORDERED: FAMOTIDINE. 20 MG/2 ML VIAL IV ONE (13:15)
[2019-03-17 15:10] VITALS: BP 153/98
--- NOTE | 2019-03-17 18:00 | NUR ---
PT'S DISCHARGE PACKAGE INSTRUCTIONS AND PRESCRIPTIONS ARE COMPLETE AND GIVEN TO PT. PHARMACY SPOKE TO PT REGARDING PRESCRIPTIONS. NO ACUTE DISTRESS NOTED. NO SOB NOTED. CALL LIGHT WITHIN REACH. BED LOCKED AND IN LOW POSITION. WILL GIVE REPORT ACCORDINGLY.
--- NOTE | 2019-03-17 19:58 | NUR ---
PT DISCHARGED. TAKEN OFF HER ID BAND AND IV. DISCHARGE PAPERS AND INSTRUCTIONS GIVEN. BELONGINGS GIVEN. PT UNDERSTAND. PT STABLE AND IN NO ACUTE DISTRESS. WITH HER.
== END 2019-03-17 19:53 | disposition home or self-care (01) | DRG 463 ==
LOC: ER 14:45 → MEDSURG3 19:35
PROVIDERS: ADMIT Nurse Practitioner Acute Care; ATTEND Nurse Practitioner Acute Care
DX: N12 Tubulo-interstitial nephritis, not specified as acute or chronic (principal); D69.6 Thrombocytopenia, unspecified; E11.42 Type 2 diabetes mellitus with diabetic polyneuropathy; E11.65 Type 2 diabetes mellitus with hyperglycemia; E87.1 Hypo-osmolality and hyponatremia; N20.0 Calculus of kidney; B95.2 Enterococcus as the cause of diseases classified elsewhere; Z79.4 Long term (current) use of insulin; G43.909 Migraine, unspecified, not intractable, without status migrainosus; Z87.442 Personal history of urinary calculi; Z80.49 Family history of malignant neoplasm of other genital organs; Z83.3 Family history of diabetes mellitus; Z87.440 Personal history of urinary (tract) infections; L27.0 Generalized skin eruption due to drugs and medicaments taken internally; T36.8X5A Adverse effect of other systemic antibiotics, initial encounter; Y92.230 Patient room in hospital as the place of occurrence of the external cause
CPT/HCPCS: 36415; 76775; 83605; 83690; 83735; 84100; 84443; 85025; 87040; 87077; 87086; A4663; G0378; J0696; J1170; J1200; J1815; J2185; J2405; J2765; J2930; J3010; J3370; J3490; J7030; J7040; J7060; Q0163

== ENCOUNTER 2019-03-23 16:51 | Inpatient (IN) | payer MEDICAID ==
[~2019-03-23] VITALS: Ht 152.4 cm; Wt 58.1 kg
[~2019-03-23 16:51] MED LIST changes: +HYDR-3326 PO; +LINE600T2 PO
--- NOTE | 2019-03-23 17:10 | NUR ---
PT IS IN ROOM #2A. DR SHELL EVALUATED THE PT.
[2019-03-23 17:29] LABS: *BILIRUBIN,URIN NEGATIVE (NEGATIVE); *BLOOD, URINE 2+ (NEGATIVE); *CLARITY,URINE SLIGHTLY CLOUDY (CLEAR); *COLOR,URINE YELLOW (YELLOW); *KETONES,URINE NEGATIVE (NEGATIVE); *UROBILINOGEN,URINE 0.2 E.U./dl (NORMAL); NITRITE, URINE NEGATIVE (NEGATIVE); UGLUCOSE 2+ (NEGATIVE)
[2019-03-23] MEDS ORDERED: HYDROMORPHONE 1 MG/1 ML DISP.SYRIN IV ONE ×2 (17:30→18:30)
[2019-03-23] MEDS ORDERED: HYDROMORPHONE 1 MG/1 ML DISP.SYRIN ONE ×2 (17:35→18:55)
[2019-03-23 17:44] LABS: LEUKOCYTE ESTERASE ,URINE TRACE (NEGATIVE)
[2019-03-23 17:45] LABS: BACTERIA,URINE MANY /HPF (NONE SEEN); MUCUS,URINE FEW /LPF (0-FEW); SQUAMOUS EPITHELIAL CELL,UR FEW /HPF (NONE SEEN)
[2019-03-23 18:02] LABS: BASOPHILS % (AUTO) 0.9 % (0.0-2.0); EOSINOPHILS % (AUTO) 1.2 % (0.0-7.0); HEMATOCRIT 40.9 % (31.2-41.9); HEMOGLOBIN 13.7 g/dL (10.9-14.3); LYMPHOCYTES # (AUTO) 1.1 K/uL (20.0-40.0); LYMPHOCYTES % (AUTO) 32.2 % (20.5-51.5); MEAN CORPUSCULAR HEMOGLOBIN 30.2 uug (24.7-32.8); MEAN CORPUSCULAR HGB CONC 34 g/dL (32.3-35.6); MEAN CORPUSCULAR VOLUME 89.9 fL (75.5-95.3); MONOCYTES # (AUTO) 0.2 K/uL (2.0-10.0); MONOCYTES % (AUTO) 4.8 % (0.0-11.0); NEUTROPHILS # (AUTO) 2.1 K/uL (1.8-8.9); NEUTROPHILS % (AUTO) 60.9 % (38.5-71.5); PLATELET COUNT (AUTO) 161 K/uL (179-408); RED BLOOD CELL COUNT(AUTO) 4.55 MIL/uL (3.63-4.92); WHITE BLOOD COUNT (AUTO) 3.5 K/uL (3.8-11.8)
[2019-03-23 18:12] LABS: CREATININE 0.8 mg/dL (0.6-1.3); POTASSIUM 3.6 mmol/L (3.5-5.1)
[2019-03-23 18:18] LABS: BILIRUBIN,DIRECT 0.2 mg/dL (0.0-0.2); BILIRUBIN,TOTAL 0.5 mg/dL (0.2-1.0); TOTAL PROTEIN, SERUM 7.2 g/dL (6.4-8.2)
[2019-03-23] MEDS ORDERED: IV NORMAL SALINE 1000 ML BAG IV ONE (18:30)
[2019-03-23] MEDS ORDERED: [UNRECOGNIZED DRUG - REMARK] (18:57)
--- NOTE | 2019-03-23 19:10 | NUR ---
report received from SOTERO Fuller.
[2019-03-23] MEDS ORDERED: AMPICILLIN IV 1 G in IV NORMAL SALINE 50 ML IV ONE (19:15)
[2019-03-23] MEDS ORDERED: AMPICILLIN 1 G VIAL ONE (19:32)
--- NOTE | 2019-03-23 19:37 | NUR ---
clarified with ER physician about not obtaining blood culture prior to adminstering antibiotics. ER physician does not want blood culture drawn.
[2019-03-23] MEDS ORDERED: METRONIDAZOLE 500 MG/NS 100 ML PIGGYBACK IV ONE (21:00)
[2019-03-23] MEDS ORDERED: METRONIDAZOLE 500 MG/NS 100ML 100 ML IV ONE (21:10)
--- NOTE | 2019-03-23 21:33 | NUR ---
called for Epic panel
--- NOTE | 2019-03-23 21:50 | NUR ---
gave report to SOTERO morton.
--- NOTE | 2019-03-23 22:09 | NUR ---
patient transferred to med surg department
--- NOTE | 2019-03-23 22:15 | NUR ---
Admitting Notes Patient received to care via jay from ER. Patient is alert and oriented x4 with complaints of left flank pain at 10/10. IV catheter is on left wrist 20g and is patent and intact, running metronidazole that was started in the ER. All assessments completed and noted. Safety and fall precaution measures are in place. Call light and personal items are within reach at all times. Will continue to monitor.
[2019-03-23 23:09] VITALS: BP 149/98
[2019-03-23] MEDS ORDERED: ONDANSETRON 4 MG/2 ML VIAL IV PRN (23:30)
[2019-03-23] MEDS ORDERED: ACETAMINOPHEN 325 MG TABLET PO PRN (23:30)
[2019-03-24] MEDS ORDERED: DEXTROSE 50% 50 ML DISP.SYRIN IV PRN
--- NOTE | 2019-03-24 00:30 | NUR ---
Contacted onckvng DILLON regarding morphine order d/t patient's allergy to medication. okayed change from morphine 2mg q3h to dilaudid 0.5 mg q4 h prn for pain.
[2019-03-24] MEDS: HYDROMORPHONE 1 MG/1 ML DISP.SYRIN IV PRN ×5 (00:51→22:02)
[2019-03-24] MEDS: BLOOD SUGAR DIAGNOSTIC 1 EACH STRIP VI SCH ×5 (00:58→21:15)
[2019-03-24] MEDS: IV NS 1000 ML 1,000 ML IV PRN ×2 (01:00→22:03)
[2019-03-24] MEDS ORDERED: METRONIDAZOLE 500 MG/NS 100ML 100 ML IV ONE (05:23)
[2019-03-24] MEDS: METRONIDAZOLE 500 MG/NS 100ML 500 MG in PREMIXED 1 EACH IV SCH ×2 (05:34→14:34)
[2019-03-24] MEDS: PANTOPRAZOLE SODIUM 40 MG TABLET.DR PO SCH (06:31)
[2019-03-24 06:38] VITALS: BP 159/100
--- NOTE | 2019-03-24 06:53 | NUR ---
Patient slept intermittently after admission. Complaints of pain were addressed with prescribed analgesic. Patient is complaining of itching and nurse observed patient scratching. Nurse will have AM shift follow up with MD for Benadryl order, as patient may be exhibiting a reaction to the prescribed analgesic. Prescribed antifungal provided as order and tolerated well. All safety and fall precaution measures remain in place. Call light and personal items are within reach at all times.
[2019-03-24 07:01] LABS: BASOPHILS % (AUTO) 0.5 % (0.0-2.0); EOSINOPHILS % (AUTO) 1.3 % (0.0-7.0); HEMOGLOBIN 13.4 g/dL (10.9-14.3); LYMPHOCYTES # (AUTO) 1.3 K/uL (20.0-40.0); LYMPHOCYTES % (AUTO) 35.2 % (20.5-51.5); MEAN CORPUSCULAR HEMOGLOBIN 31.8 uug (24.7-32.8); MEAN CORPUSCULAR HGB CONC 35 g/dL (32.3-35.6); MEAN CORPUSCULAR VOLUME 90.3 fL (75.5-95.3); MONOCYTES # (AUTO) 0.2 K/uL (2.0-10.0); MONOCYTES % (AUTO) 4.4 % (0.0-11.0); NEUTROPHILS # (AUTO) 2.1 K/uL (1.8-8.9); NEUTROPHILS % (AUTO) 58.6 % (38.5-71.5); PLATELET COUNT (AUTO) 143 K/uL (179-408); RED BLOOD CELL COUNT(AUTO) 4.21 MIL/uL (3.63-4.92); WHITE BLOOD COUNT (AUTO) 3.6 K/uL (3.8-11.8)
[2019-03-24 07:31] LABS: ALANINE AMINOTRANSFERASE 54 U/L (14-59); ALKALINE PHOSPHATASE 52 U/L (50-136); ASPARTATE AMINOTRANSFERASE 40 U/L (15-37); BILIRUBIN,TOTAL 0.5 mg/dL (0.2-1.0); CARBON DIOXIDE 27 mmol/L (21-32); CHLORIDE 106 mmol/L (98-107); CREATININE 0.5 mg/dL (0.6-1.3); GLUCOSE 206 mg/dL (74-106); MAGNESIUM 1.5 mg/dL (1.8-2.4); PHOSPHOROUS 3.6 mg/dL (2.5-4.9); POTASSIUM 3.4 mmol/L (3.5-5.1); TOTAL PROTEIN, SERUM 6.4 g/dL (6.4-8.2); UREA NITROGEN, BLOOD 7 mg/dL (7-18)
[2019-03-24] MEDS ORDERED: POTASSIUM CHLORIDE 20 MEQ TAB.PRT.SR PO ONE (08:00)
[2019-03-24] MEDS ORDERED: MAGNESIUM OXIDE 400 MG TABLET PO ONE (08:15)
[2019-03-24] MEDS ORDERED: diphenhydrAMINE 25 MG CAP PO PRN (08:15)
[2019-03-24] MEDS: INSULIN REGULAR, HUMAN 300 UNIT/3 ML VIAL SQ PRN ×4 (08:56→21:17)
[2019-03-24] MEDS: LEVOFLOXACIN 750 MG TABLET PO SCH (11:47)
[2019-03-24 12:10] VITALS: BP 150/80
[2019-03-24] MEDS ORDERED: AMPICILLIN IV 1 G in IV NORMAL SALINE 50 ML IV SCH (14:00)
[2019-03-24 16:32] VITALS: BP 172/101
[2019-03-24 17:09] VITALS: BP 154/98
--- NOTE | 2019-03-24 18:45 | NUR ---
PATIENT IN BED WATCHING TV, , NO S/S OF ACUTE DISTRESS NOTED, IV INTACT AND PATENT, PATIENT C/O PAIN AND PRN PAIN MEDS GIVEN ORDER. SAFETY AND COMFORT PROVIDED. WILL CONTINUE TO MONITOR, CALL LIGHT WITHIN REACHED.
--- NOTE | 2019-03-24 18:57 | NUR ---
DR EMELY SANTOS ORDERED BENADRYL 25MG IV PER PT REQUESTED. PT IN NO ACUTE DISTRESS. WILL CONTINUE TO MONITOR.
--- NOTE | 2019-03-24 19:25 | NUR ---
RECEIVED PT AWAKE, ALERT AND ORIENTEDX4. PT SHOWS NO SIGNS OF ACUTE DISTRESS. IV INTACT.SAFETY AND COMFORT PROVIDED. WILL CONTINUE TO MONITOR.
[2019-03-24 20:00] VITALS: BP_SYST 150; BP_SYST 156; BP_DIAS 100
[2019-03-24] MEDS: INSULIN GLARGINE,HUM 300 UNITS/3 ML CARTRIDGE SQ SCH (21:15)
[2019-03-24] MEDS: LORAZEPAM 1 MG TABLET PO PRN (21:17)
[2019-03-24] MEDS: METRONIDAZOLE 500 MG TABLET PO SCH (21:17)
[2019-03-24] MEDS: diphenhydrAMINE 50 MG/1 ML VIAL IV PRN (22:03)
[2019-03-25] MEDS: HYDROMORPHONE 1 MG/1 ML DISP.SYRIN IV PRN ×5 (02:09→21:00)
[2019-03-25] MEDS: ZOLPIDEM 5 MG TABLET PO PRN (02:46)
[2019-03-25] MEDS: diphenhydrAMINE 50 MG/1 ML VIAL IV PRN ×3 (04:28→18:22)
[2019-03-25] MEDS: IV NS 1000 ML 1,000 ML IV PRN ×2 (04:36→21:30)
[2019-03-25 04:57] VITALS: BP 157/80
[2019-03-25] MEDS: LEVOFLOXACIN 750 MG TABLET PO SCH (06:15)
[2019-03-25] MEDS: METRONIDAZOLE 500 MG TABLET PO SCH ×3 (06:15→21:00)
--- NOTE | 2019-03-25 06:35 | NUR ---
PT SLEPT INTERMITTENTLY. PT SHOWS NO SIGNS OF ACUTE DISTRESS. IV INTACT. PRESCRIBED MEDICATION GIVEN AND PT TOLERATED IT WELL. PRN MEDICATIONS ATIVAN GIVEN AT 2117H FOR AGITATION. BENADRYL GIVEN AT 2203 AND 0428H FOR ITCHINESS. DILAUDID GIVEN AT 2202H, 0209H, AND 0617H FOR PAIN SCALE OF 9/10 FOR LEFT ABDOMEN. ALL NEEDS ARE MET. SAFETY AND COMFORT PROVIDED. WILL ENDORSE TO INCOMING NURSE FOR CONTINUITY OF CARE.
[2019-03-25] MEDS: PANTOPRAZOLE SODIUM 40 MG TABLET.DR PO SCH (06:41)
[2019-03-25] MEDS: BLOOD SUGAR DIAGNOSTIC 1 EACH STRIP VI SCH ×4 (06:41→21:11)
[2019-03-25 06:43] LABS: BASOPHILS % (AUTO) 0.4 % (0.0-2.0); EOSINOPHILS # (AUTO) 0.1 K/uL (0.0-0.7); EOSINOPHILS % (AUTO) 1.8 % (0.0-7.0); HEMATOCRIT 38.6 % (31.2-41.9); HEMOGLOBIN 13.6 g/dL (10.9-14.3); LYMPHOCYTES # (AUTO) 1.4 K/uL (20.0-40.0); LYMPHOCYTES % (AUTO) 37.6 % (20.5-51.5); MEAN CORPUSCULAR HEMOGLOBIN 32.1 uug (24.7-32.8); MEAN CORPUSCULAR HGB CONC 35 g/dL (32.3-35.6); MEAN CORPUSCULAR VOLUME 90.6 fL (75.5-95.3); MONOCYTES # (AUTO) 0.2 K/uL (2.0-10.0); MONOCYTES % (AUTO) 5.4 % (0.0-11.0); NEUTROPHILS % (AUTO) 54.8 % (38.5-71.5); PLATELET COUNT (AUTO) 151 K/uL (179-408); RED BLOOD CELL COUNT(AUTO) 4.26 MIL/uL (3.63-4.92); WHITE BLOOD COUNT (AUTO) 3.7 K/uL (3.8-11.8)
[2019-03-25 06:50] LABS: CARBON DIOXIDE 30 mmol/L (21-32); CHLORIDE 103 mmol/L (98-107); CREATININE 0.5 mg/dL (0.6-1.3); GLUCOSE 152 mg/dL (74-106); MAGNESIUM 1.6 mg/dL (1.8-2.4); POTASSIUM 4.1 mmol/L (3.5-5.1); UREA NITROGEN, BLOOD 6 mg/dL (7-18)
--- NOTE | 2019-03-25 07:00 | NUR ---
Received patient in bed resting and calm, with no s/s of acute distress noted and prn pain meds given earlier, IV intact and patent. continue to monitor and call light within reached.
[2019-03-25] MEDS ORDERED: MAGNESIUM OXIDE 400 MG TABLET PO ONE (08:00)
[2019-03-25] MEDS: INSULIN REGULAR, HUMAN 300 UNIT/3 ML VIAL SQ PRN ×3 (09:12→21:16)
[2019-03-25 12:00] VITALS: BP 156/107
[2019-03-25 16:00] VITALS: BP 151/103
--- NOTE | 2019-03-25 18:37 | NUR ---
PATIENT IN BED WATCHING TV WITH NO S/S OF ACUTE DISTRESS NOTED, C/O PAIN AND PRN PAIN MEDS GIVEN ORDER. CONTINUES TO MONITOR. ALL NEEDS ATTENDED. CALL LIGHT WITHIN REACHED.
--- NOTE | 2019-03-25 20:00 | NUR ---
Patient received into care sitting up in bed with son at bedside. Patient is alert/oriented x3 and has no complaints of pain at this time. IV site is patent and intact with NS IVF running @ 80mL/hr. Safety, fall, and isolation precaution measures are in place. Call light and personal items are within reach. Will continue to monitor.
[2019-03-25 20:24] VITALS: BP 171/101
[2019-03-25] MEDS: CLONIDINE HCL 0.1 MG TABLET PO PRN (21:00)
[2019-03-25] MEDS: INSULIN GLARGINE,HUM 300 UNITS/3 ML CARTRIDGE SQ SCH (21:03)
[2019-03-26] MEDS: diphenhydrAMINE 50 MG/1 ML VIAL IV PRN ×2 (00:49→07:00)
[2019-03-26] MEDS: HYDROMORPHONE 1 MG/1 ML DISP.SYRIN IV PRN ×4 (01:01→11:39)
[2019-03-26] MEDS: ZOLPIDEM 5 MG TABLET PO PRN ×2 (02:03→21:22)
[2019-03-26] MEDS: METRONIDAZOLE 500 MG TABLET PO SCH ×3 (05:32→22:11)
[2019-03-26] MEDS: LEVOFLOXACIN 750 MG TABLET PO SCH (05:32)
[2019-03-26] MEDS: BLOOD SUGAR DIAGNOSTIC 1 EACH STRIP VI SCH ×5 (05:33→21:12)
[2019-03-26 05:44] VITALS: BP 144/79
[2019-03-26] MEDS: INSULIN REGULAR, HUMAN 300 UNIT/3 ML VIAL SQ PRN ×4 (06:32→21:35)
[2019-03-26] MEDS: PANTOPRAZOLE SODIUM 40 MG TABLET.DR PO SCH (06:41)
--- NOTE | 2019-03-26 06:49 | NUR ---
Patient slept intermittently throughout night. Complaints of pain were addressed with prescribed analgesics with patient verbalizing relief. Complaints of itching were addressed with prescribed diphenhydramine with patient expressing relief. All prescribed medications provided as ordered and tolerated well, with no adverse side effects verbalized or observed. Patient showered this AM. Safety, fall, and isolation precautions remain in place. Call light and personal items are within reach at all times.
--- NOTE | 2019-03-26 08:00 | NUR ---
Received patient awake in bed. AAOx4. IV on R FA intact and patent with NS running at 80cc/hr. Contact precautions in place. Safety measures implemented. Call light within reach. Will continue to monitor.
[2019-03-26 08:54] LABS: EOSINOPHILS # (AUTO) 0.1 K/uL (0.0-0.7); EOSINOPHILS % (AUTO) 1.6 % (0.0-7.0); HEMATOCRIT 40.4 % (31.2-41.9); HEMOGLOBIN 13.7 g/dL (10.9-14.3); LYMPHOCYTES # (AUTO) 1.1 K/uL (20.0-40.0); LYMPHOCYTES % (AUTO) 32.9 % (20.5-51.5); MEAN CORPUSCULAR HEMOGLOBIN 30.5 uug (24.7-32.8); MEAN CORPUSCULAR HGB CONC 34 g/dL (32.3-35.6); MONOCYTES # (AUTO) 0.2 K/uL (2.0-10.0); MONOCYTES % (AUTO) 6.3 % (0.0-11.0); NEUTROPHILS # (AUTO) 1.9 K/uL (1.8-8.9); NEUTROPHILS % (AUTO) 58.2 % (38.5-71.5); PLATELET COUNT (AUTO) 162 K/uL (179-408); RED BLOOD CELL COUNT(AUTO) 4.49 MIL/uL (3.63-4.92); WHITE BLOOD COUNT (AUTO) 3.3 K/uL (3.8-11.8)
[2019-03-26 08:57] LABS: CREATININE 0.6 mg/dL (0.6-1.3); MAGNESIUM 1.5 mg/dL (1.8-2.4); POTASSIUM 3.6 mmol/L (3.5-5.1)
[2019-03-26] MEDS ORDERED: MAGNESIUM OXIDE 400 MG TABLET PO ONE (11:15)
[2019-03-26] MEDS: diphenhydrAMINE 25 MG CAP PO PRN ×2 (11:26→21:22)
[2019-03-26 12:00] VITALS: BP 154/104
[2019-03-26] MEDS ORDERED: HYDROMORPHONE 1 MG/1 ML DISP.SYRIN IV PRN (13:45)
[2019-03-26] MEDS: IV NS 1000 ML 1,000 ML IV PRN (14:40)
[2019-03-26] MEDS: HYDROMORPHONE 2 MG/1 ML DISP.SYRIN IV PRN ×3 (14:41→21:23)
[2019-03-26] MEDS: CLONIDINE HCL 0.1 MG TABLET PO PRN (15:27)
[2019-03-26 15:55] VITALS: BP 162/112
[2019-03-26] MEDS: LORAZEPAM 1 MG TABLET PO PRN (16:14)
[2019-03-26] MEDS ORDERED: METOCLOPRAMIDE HCL 10 MG/2 ML VIAL IV ONE (18:00)
--- NOTE | 2019-03-26 18:30 | NUR ---
Patient verbalized left lower flank pain that radiate to right side and RLQ pain throughout shift; PRN Dilaudid administered accordingly. Patient had one episode of emesis at 1600, PRN Zofran administered. Patient experienced another episode of emesis. Notified CAR CLEANING SUPERVISOR and received order of 10 mg Reglan IVP x1. Tolerated. Resting in bed at this time. Safety measures implemented. Comfort provided at all times; all needs met. Will endorse accordingly.
[2019-03-26 20:00] VITALS: BP 158/95
[2019-03-26] MEDS ORDERED: INSULIN GLARGINE,HUM 300 UNITS/3 ML CARTRIDGE SQ SCH (21:00)
[2019-03-27] MEDS: diphenhydrAMINE 25 MG CAP PO PRN ×3 (01:35→11:58)
[2019-03-27] MEDS: HYDROMORPHONE 2 MG/1 ML DISP.SYRIN IV PRN ×3 (01:35→11:15)
[2019-03-27 05:41] VITALS: BP 169/98
[2019-03-27] MEDS: IV NS 1000 ML 1,000 ML IV PRN (06:32)
[2019-03-27] MEDS: PANTOPRAZOLE SODIUM 40 MG TABLET.DR PO SCH (06:32)
[2019-03-27] MEDS: LEVOFLOXACIN 750 MG TABLET PO SCH (06:32)
[2019-03-27] MEDS: METRONIDAZOLE 500 MG TABLET PO SCH (06:32)
[2019-03-27] MEDS: CLONIDINE HCL 0.1 MG TABLET PO PRN (06:33)
--- NOTE | 2019-03-27 06:34 | NUR ---
patient received lying in bed and watching TV. no signs of acute distress and v/s stable throughout shift. BP 158/95 at beginning of shift. Re-checked an hour later and BP at 115/79. IVF fluid infusing at 80cc/hr. all medications prescribed administered and tolerated well. Dilaudid administered three times on my shift for c/o of pain. Ambien administered once for insomnia. no adverse effects. safety and comfort measures provided at all times. will continue plan of care and endorse to morning nurse. bp 169/98 in the morning, Catapres administered.
[2019-03-27 06:49] LABS: BASOPHILS % (AUTO) 0.3 % (0.0-2.0); EOSINOPHILS % (AUTO) 1.2 % (0.0-7.0); HEMATOCRIT 36.8 % (31.2-41.9); HEMOGLOBIN 13.1 g/dL (10.9-14.3); LYMPHOCYTES # (AUTO) 1.4 K/uL (20.0-40.0); MEAN CORPUSCULAR HGB CONC 36 g/dL (32.3-35.6); MEAN CORPUSCULAR VOLUME 89.5 fL (75.5-95.3); MONOCYTES # (AUTO) 0.2 K/uL (2.0-10.0); MONOCYTES % (AUTO) 5.5 % (0.0-11.0); NEUTROPHILS # (AUTO) 1.9 K/uL (1.8-8.9); PLATELET COUNT (AUTO) 150 K/uL (179-408); RED BLOOD CELL COUNT(AUTO) 4.11 MIL/uL (3.63-4.92); WHITE BLOOD COUNT (AUTO) 3.5 K/uL (3.8-11.8)
[2019-03-27] MEDS: BLOOD SUGAR DIAGNOSTIC 1 EACH STRIP VI SCH ×2 (06:49→12:01)
[2019-03-27 06:57] LABS: CREATININE 0.6 mg/dL (0.6-1.3); MAGNESIUM 1.5 mg/dL (1.8-2.4); POTASSIUM 4.3 mmol/L (3.5-5.1)
[2019-03-27] MEDS ORDERED: MAGNESIUM OXIDE 400 MG TABLET PO ONE (07:45)
--- NOTE | 2019-03-27 08:01 | NUR ---
Received patient awake in bed. AAOx4. IV on R FA 20 gauge intact and patent with NS running at 80cc/hr. Pt. denies SOB/ difficulty breathing. pt. denies pain or discomfort. Contact precautions in place. Safety measures implemented. Call light within reach. Will continue to monitor.
[2019-03-27] MEDS: INSULIN REGULAR, HUMAN 300 UNIT/3 ML VIAL SQ PRN (08:13)
--- NOTE | 2019-03-27 11:29 | NUR ---
Pt. states she removed IV by accident. New IV placed in right AC 20 gauge intact patent running fluids.
[2019-03-27 11:44] VITALS: BP 144/97
[2019-03-27] MEDS ORDERED: MAGNESIUM SULFATE/D5W 100 ML IV SCH (12:00)
[2019-03-27] MEDS ORDERED: Humalog (12:04)
[2019-03-27] MEDS ORDERED: METR500T PO (12:04)
[2019-03-27] MEDS ORDERED: HYDR-3326 PO (12:04)
[2019-03-27] MEDS ORDERED: ONDA4TAB5 PO (12:04)
[2019-03-27] MEDS ORDERED: INSU100V7 SQ (12:04)
[2019-03-27] MEDS ORDERED: LEVO750T21 PO (12:04)
--- NOTE | 2019-03-27 14:30 | NUR ---
Pt. discharged home to self-care. Pt. is stable. Vital signs stable. Discharge instructions given to pt. Pt. signed all discharge paper work. Pt. signed belongings list. IV site removed. ID badge removed. Prescription given to pt. 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 down accompanied with pt.'s boyfriend.
== END 2019-03-27 14:35 | disposition home or self-care (01) | DRG 248 ==
LOC: ER 16:51 → MEDSURG3 21:57
PROVIDERS: ADMIT Internal Medicine; ATTEND Nurse Practitioner Acute Care
DX: A04.72 Enterocolitis due to Clostridium difficile, not specified as recurrent (principal); E11.42 Type 2 diabetes mellitus with diabetic polyneuropathy; D69.6 Thrombocytopenia, unspecified; E11.65 Type 2 diabetes mellitus with hyperglycemia; E83.42 Hypomagnesemia; N13.30 Unspecified hydronephrosis; N39.0 Urinary tract infection, site not specified; B96.20 Unspecified Escherichia coli [E. coli] as the cause of diseases classified elsewhere; Z79.4 Long term (current) use of insulin; N20.0 Calculus of kidney; Z16.12 Extended spectrum beta lactamase (ESBL) resistance; R74.0 Nonspecific elevation of levels of transaminase and lactic acid dehydrogenase [LDH]; E87.6 Hypokalemia; E03.9 Hypothyroidism, unspecified; Z80.49 Family history of malignant neoplasm of other genital organs; Z83.3 Family history of diabetes mellitus; Z87.440 Personal history of urinary (tract) infections; Z88.1 Allergy status to other antibiotic agents; G43.909 Migraine, unspecified, not intractable, without status migrainosus; L29.9 Pruritus, unspecified
CPT/HCPCS: 36415; 76770; 83690; 83735; 84100; 84443; 85025; 86625; 87046; 87077; 87086; A4663; G0378; J0290; J1170; J1200; J1815; J2405; J2765; J3475; J3490; J7030; Q0163

== ENCOUNTER 2019-05-06 11:41 | Emergency (ER) | payer MEDICAID ==
[~2019-05-06] VITALS: Ht 152.4 cm; Wt 56.7 kg
[~2019-05-06 11:41] MED LIST changes: +Humalog; +INSU100V7 SQ; -INSU3INS6 SQ; +LEVO750T21 PO; -LINE600T2 PO; +METR500T PO; +ONDA4TAB5 PO
--- NOTE | 2019-05-06 11:56 | NUR ---
Pt ambulating with steady gait. A&O x4. c/o flank pain starting at right side radiating to left. X1 day Denies any trauma. c/o pressure when urinating. Per pt has hx of right sided kidney stone. Breathing even and unlabored. Denies any SOB. Fall precautions implemented per protocol, bed low, s/r up x2.
[2019-05-06] MEDS ORDERED: HYDROCODONE/APAP 5-325MG TABLET ONE (11:59)
[2019-05-06 12:51] LABS: *BILIRUBIN,URIN NEGATIVE (NEGATIVE); *BLOOD, URINE NEGATIVE (NEGATIVE); *CLARITY,URINE CLEAR (CLEAR); *COLOR,URINE YELLOW (YELLOW); *KETONES,URINE NEGATIVE (NEGATIVE); *UROBILINOGEN,URINE 0.2 E.U./dl (NORMAL); LEUKOCYTE ESTERASE ,URINE NEGATIVE (NEGATIVE); NITRITE, URINE NEGATIVE (NEGATIVE); UGLUCOSE 2+ (NEGATIVE)
[2019-05-06 12:53] LABS: *URINE HCG, QUAL NEGATIVE (NEGATIVE)
[2019-05-06 13:00] LABS: BACTERIA,URINE FEW /HPF (NONE SEEN); RBC,URINE NONE SEEN /HPF (0-3); SQUAMOUS EPITHELIAL CELL,UR FEW /HPF (NONE SEEN); WBC,URINE NONE SEEN /HPF (0-3)
--- NOTE | 2019-05-06 13:05 | NUR ---
Dr Clay at the bedside for MSE.
[2019-05-06] MEDS ORDERED: IV NORMAL SALINE 1000 ML BAG IV ONE (13:15)
[2019-05-06] MEDS ORDERED: INSULIN REGULAR, HUMAN 300 UNIT/3 ML VIAL IV ONE (13:15)
[2019-05-06] MEDS ORDERED: HYDROCODONE/APAP 5-325MG TABLET PO ONE (13:15)
[2019-05-06] MEDS ORDERED: HYDROMORPHONE 1 MG/1 ML DISP.SYRIN IV ONE (13:15)
[2019-05-06] MEDS ORDERED: ONDANSETRON 4 MG/2 ML VIAL IV ONE (13:15)
[2019-05-06] MEDS ORDERED: ONDANSETRON 4 MG/2 ML VIAL ONE (13:25)
[2019-05-06] MEDS ORDERED: INSULIN REGULAR, HUMAN 300 UNIT/3 ML VIAL ONE (13:25)
[2019-05-06] MEDS ORDERED: HYDROMORPHONE 1 MG/1 ML DISP.SYRIN ONE (13:25)
[2019-05-06 13:31] LABS: BASOPHILS % (AUTO) 0.8 % (0.0-2.0); EOSINOPHILS % (AUTO) 0.8 % (0.0-7.0); HEMATOCRIT 39.7 % (31.2-41.9); HEMOGLOBIN 13.7 g/dL (10.9-14.3); LYMPHOCYTES % (AUTO) 30.6 % (20.5-51.5); MEAN CORPUSCULAR HEMOGLOBIN 30.2 uug (24.7-32.8); MEAN CORPUSCULAR HGB CONC 34 g/dL (32.3-35.6); MEAN CORPUSCULAR VOLUME 87.7 fL (75.5-95.3); MONOCYTES # (AUTO) 0.1 K/uL (2.0-10.0); NEUTROPHILS # (AUTO) 2.1 K/uL (1.8-8.9); NEUTROPHILS % (AUTO) 63.8 % (38.5-71.5); PLATELET COUNT (AUTO) 149 K/uL (179-408); RED BLOOD CELL COUNT(AUTO) 4.52 MIL/uL (3.63-4.92); WHITE BLOOD COUNT (AUTO) 3.3 K/uL (3.8-11.8)
[2019-05-06 13:40] LABS: BILIRUBIN,DIRECT 0.2 mg/dL (0.0-0.2); BILIRUBIN,TOTAL 0.6 mg/dL (0.2-1.0); CREATININE 0.7 mg/dL (0.6-1.3); POTASSIUM 4.2 mmol/L (3.5-5.1); TOTAL PROTEIN, SERUM 6.9 g/dL (6.4-8.2)
--- NOTE | 2019-05-06 14:51 | NUR ---
IV removed. Catheter intact and site benign. Pressure and 4x4 gauze applied to site. No bleeding noted. Patient discharged to home in stable conditon. pt ambulating with steady gait. Written and verbal after care instructions given. Patient verbalizes understanding of instructions.
[2019-05-06 14:52] VITALS: BP 122/73
== END 2019-05-06 14:51 | disposition home or self-care (01) ==
LOC: ER 11:43
DX: R31.29 Other microscopic hematuria (principal); E11.9 Type 2 diabetes mellitus without complications; Z88.1 Allergy status to other antibiotic agents; Z88.5 Allergy status to narcotic agent; Z88.8 Allergy status to other drugs, medicaments and biological substances; Z79.4 Long term (current) use of insulin; Z79.2 Long term (current) use of antibiotics; Z79.899 Other long term (current) drug therapy
CPT/HCPCS: 36415; 76770; 80048; 80076; 81000; 81001; 84703; 85025; 87086; 96374; 96375; 99284; J1170; J1815; J2405; A4663; J7030

== ENCOUNTER 2020-02-22 00:07 | Emergency (ER) | payer SELFPAY ==
[~2020-02-22] VITALS: Ht 152.4 cm; Wt 54.4 kg
--- NOTE | 2020-02-22 00:16 | NUR ---
Dr. Gomez at bedside for mse.
--- NOTE | 2020-02-22 00:20 | NUR ---
Xray at bedside.
--- NOTE | 2020-02-22 00:33 | NUR ---
Patient discharged to home in stable condition. Written and verbal after care instructions given. Patient verbalizes understanding of instructions. Stressed follow up or return to ER for worsening s/s.
[2020-02-22 00:34] VITALS: BP 118/72
== END 2020-02-22 00:34 | disposition home or self-care (01) ==
LOC: ER 00:11
DX: S90.31XA Contusion of right foot, initial encounter (principal); W50.0XXA Accidental hit or strike by another person, initial encounter; Y92.89 Other specified places as the place of occurrence of the external cause; E11.42 Type 2 diabetes mellitus with diabetic polyneuropathy; Z83.3 Family history of diabetes mellitus; Z80.8 Family history of malignant neoplasm of other organs or systems; Z79.4 Long term (current) use of insulin; Z88.6 Allergy status to analgesic agent; Z88.1 Allergy status to other antibiotic agents
CPT/HCPCS: 73630; A4663